=== PATIENT | male | born 1955 | race Caucasian/White ===

== ENCOUNTER 2017-11-07 07:39 | Day surgery (SDC) | payer BC ==
[2017-11-02 23:29] VITALS: BMI 29.0
[~2017-11-07 07:39] MED LIST: LACTATED RINGERS 1,000 ML IV SCH; LIDOCAINE 1% 20 ML VIAL (10MG/ML) FOR IV START INTRADERMA PRN
[2017-11-07 08:07] VITALS: RESP 16; TEMP 97.3
[2017-11-07] MEDS ORDERED: LIDOCAINE 1% INJ 10MG/ML (20 ML MDV) ONE (08:56)
[2017-11-07] MEDS ORDERED: MIDAZOLAM 2 MG/2 ML VIAL ONE (08:56)
[2017-11-07] MEDS ORDERED: PROPOFOL 10 MG/ML 20 ML VIAL IV ONE (08:56)
[2017-11-07 09:34] VITALS: BP 157/86; PULSE 52
--- NOTE | 2017-11-07 10:05 | P.PCN ---
Date of Procedure: 11/07/17 Procedure(s) Performed: Procedure: Total colonoscopy. Preoperative diagnosis: Screening for neoplasia. Postoperative diagnosis: Sigmoid diverticulosis with no evidence of acute diverticulitis, strictures, polyps or cancer. Preparation: HalfLytely prep. Sedation: Was provided by anesthesia. Brief clinical history: The patient is a 62-year-old male who is referred for this evaluation for screening for neoplasia. The patient had a prior colonoscopy around 10 years ago. At this time, he has no abdominal complaints, bleeding or anemia. Procedure: With the patient on his left lateral decubitus position and after informed consent and adequate sedation, the perianal area was inspected and it did not show any fissures or fistulas. There were no masses felt on digital rectal examination. The Olympus CFQ 160L video colonoscope was then inserted in the rectum in the usual fashion and advanced to the cecum. There were several diverticular orifices seen scattered in the sigmoid with no evidence of acute diverticulitis or strictures. No polyps or tumors were seen. I retroflexed the endoscope in the rectum before the endoscope was withdrawn. The patient tolerated the procedure well. Plan: The patient was reassured. Discussed dietary measures. I recommended repeat exam in 10 years. He will follow up with you as planned.
== END 2017-11-07 10:21 | disposition home or self-care (01) ==
LOC: ORWHC2ENDO 07:39
DX: Z12.11 Encounter for screening for malignant neoplasm of colon (principal); K57.30 Diverticulosis of large intestine without perforation or abscess without bleeding; I10 Essential (primary) hypertension; E78.5 Hyperlipidemia, unspecified; F17.200 Nicotine dependence, unspecified, uncomplicated; Z79.899 Other long term (current) drug therapy; Z85.828 Personal history of other malignant neoplasm of skin
CPT/HCPCS: G0121; J2250; J2001; J2704

== ENCOUNTER 2020-08-02 11:17 | Inpatient (IN) | payer BC, MEDICARE ==
--- NOTE | 2020-08-02 11:26 | ED ---
General Adult HPI - General Stated complaint: GI Bleed Time Seen by Provider: 08/02/20 11:17 Source: patient, RN notes reviewed, old records reviewed - History of Present Illness Initial comments: This is a 65-year-old male who presents emergency department stating that he's been lightheaded having blood per rectum and and feeling very weak. Patient states she's also notices color to be very pale. Patient states he was just discharged from the hospital at [facility] on Tuesday afternoon and he was in the hospital for diverticulitis. Patient states he had no biopsies or polypectomies. Patient denies any current abdominal pain. Patient denies any nausea vomiting or diarrhea. Patient denies any fever chills. - Related Data Home Medications Medication Instructions Recorded Confirmed Losartan Potassium 50 mg PO DAILY 11/02/17 08/02/20 Lovastatin [Mevacor] 10 mg PO DAILY 11/02/17 08/02/20 Amoxic-Pot Clav 875-125Mg 1 tab PO BID 08/02/20 08/02/20 [Augmentin 875-125] L.acidoph,Paracasei, B.lactis 1 cap PO DAILY 08/02/20 08/02/20 [Probiotic] Allergies Allergy/AdvReac Type Severity Reaction Status Date / Time No Known Allergies Allergy Verified 08/02/20 12:25 Review of Systems ROS Statement: Those systems with pertinent positive or pertinent negative responses have been documented in the HPI. ROS Other: All systems not noted in ROS Statement are negative. Past Medical History Past Medical History: Cancer, Hyperlipidemia, Hypertension Additional Past Medical History / Comment(s): skin-basal & squamous History of Any Multi-Drug Resistant Organisms: None Reported Past Surgical History: Hernia Repair, Tonsillectomy Past Anesthesia/Blood Transfusion Reactions: No Reported Reaction Past Alcohol Use History: Occasional Additional Past Alcohol Use History / Comment(s): quit smoking 15yrs-<1ppd smoked approx on and off 30yrs, occas cigar Past Drug Use History: None Reported - Past Family History Mother Family Medical History: Cancer Additional Family Medical History / Comment(s): skin General Exam - General Exam Comments Initial Comments: GENERAL: Patient is well-developed and well-nourished. Patient is nontoxic and well- hydrated and is in mild distress. ENT: Neck is soft and supple. No significant lymphadenopathy is noted. Oropharynx is clear. Moist mucous membranes. Neck has full range of motion without eliciting any pain. EYES: The sclera were anicteric and conjunctiva were pink and moist. Extraocular movements were intact and pupils were equal round and reactive to light. Eyelids were unremarkable. PULMONARY: Unlabored respirations. Good breath sounds bilaterally. No audible rales rhonchi or wheezing was noted. CARDIOVASCULAR: There is a regular rate and rhythm without any murmurs gallops or rubs. ABDOMEN: Soft and nontender with normal bowel sounds. SKIN: Patient is very pale NEUROLOGIC: Patient is alert and oriented x3. Cranial nerves II through XII are grossly intact. Motor and sensory are also intact. Normal speech, volume and content. Symmetrical smile. MUSCULOSKELETAL: Normal extremities with adequate strength and full range of motion. LYMPHATICS: No significant lymphadenopathy is noted PSYCHIATRIC: Normal psychiatric evaluation. Course Vital Signs 08/02/20 08/02/20 08/02/20 11:19 11:25 11:30 Temperature 98.6 F Pulse Rate 92 84 Respiratory 16 16 Rate Blood Pressure 108/64 108/64 108/64 O2 Sat by Pulse 100 100 Oximetry 08/02/20 08/02/20 12:00 12:30 Temperature Pulse Rate 83 82 Respiratory 14 16 Rate Blood Pressure 114/75 122/65 O2 Sat by Pulse Oximetry Medical Decision Making - Medical Decision Making EKG shows normal sinus rhythm at 89 bpm NE interval is 138 QRS is 94 QT interval 422 QTC is 513 per patient's EKG shows T-wave inversions in leads V3 through V6. Also in lead 1 and aVL patient also has Q waves in 1 and aVL. I spoke with Dr. Medeiros he agreed to admit the patient admitted the patient wrote admitting orders. I spoke with Dr. Lion craig and he agreed to accept the admission to the ICU - Lab Data Result diagrams: 08/02/20 11:32 08/02/20 11:32 Lab Results 08/02/20 08/02/20 08/02/20 Range/Units 11:30 11:32 11:32 WBC 12.9 H (3.8-10.6) k/uL RBC 1.64 L (4.30-5.90) m/uL Hgb 4.8 L* (13.0-17.5) gm/dL Hct 15.3 L* (39.0-53.0) % MCV 92.8 (80.0-100.0) fL MCH 29.0 (25.0-35.0) pg MCHC 31.3 (31.0-37.0) g/dL RDW 14.8 (11.5-15.5) % Plt Count 180 (150-450) k/uL Neutrophils % Not Reportable Neutrophils % (Manual) 73 % Lymphocytes % Not Reportable Lymphocytes % (Manual) 24 % Monocytes % Not Reportable Monocytes % (Manual) 1 % Eosinophils % Not Reportable Eosinophils % (Manual) 1 % Basophils % Not Reportable Metamyelocytes % 2 % Myelocytes % 1 % Neutrophils # Not Reportable Neutrophils # (Manual) 9.42 H (1.3-7.7) k/uL Lymphocytes # Not Reportable Lymphocytes # (Manual) 3.10 (1.0-4.8) k/uL Monocytes # Not Reportable Monocytes # (Manual) 0.13 (0-1.0) k/uL Eosinophils # Not Reportable Eosinophils # (Manual) 0.13 (0-0.7) k/uL Basophils # Not Reportable Metamyelocytes # (Man) 0.26 H (0) k/uL Myelocytes # (Manual) 0.13 H (0) k/uL Nucleated RBCs 0 (0-0) /100 WBC Manual Slide Review Performed PT 11.9 (9.0-12.0) sec INR 1.2 H (<1.2) APTT 25.0 (22.0-30.0) sec Sodium (137-145) mmol/L Potassium (3.5-5.1) mmol/L Chloride (98-107) mmol/L Carbon Dioxide (22-30) mmol/L Anion Gap mmol/L BUN (9-20) mg/dL Creatinine (0.66-1.25) mg/dL Est GFR (CKD-EPI)AfAm (>60 ml/min/1.73 sqM) Est GFR (CKD-EPI)NonAf (>60 ml/min/1.73 sqM) Glucose (74-99) mg/dL Calcium (8.4-10.2) mg/dL Magnesium (1.6-2.3) mg/dL Total Bilirubin (0.2-1.3) mg/dL AST (17-59) U/L ALT (4-49) U/L Alkaline Phosphatase (38-126) U/L Troponin I (0.000-0.034) ng/mL Total Protein (6.3-8.2) g/dL Albumin (3.5-5.0) g/dL Blood Type Blood Type Confirm A Positive Blood Type Recheck Bld Type Recheck Status Antibody Screen Crossmatch Spec Expiration Date 08/02/20 08/02/20 08/02/20 Range/Units 11:32 11:32 11:32 WBC (3.8-10.6) k/uL RBC (4.30-5.90) m/uL Hgb (13.0-17.5) gm/dL Hct (39.0-53.0) % MCV (80.0-100.0) fL MCH (25.0-35.0) pg MCHC (31.0-37.0) g/dL RDW (11.5-15.5) % Plt Count (150-450) k/uL Neutrophils % Neutrophils % (Manual) % Lymphocytes % Lymphocytes % (Manual) % Monocytes % Monocytes % (Manual) % Eosinophils % Eosinophils % (Manual) % Basophils % Metamyelocytes % % Myelocytes % % Neutrophils # Neutrophils # (Manual) (1.3-7.7) k/uL Lymphocytes # Lymphocytes # (Manual) (1.0-4.8) k/uL Monocytes # Monocytes # (Manual) (0-1.0) k/uL Eosinophils # Eosinophils # (Manual) (0-0.7) k/uL Basophils # Metamyelocytes # (Man) (0) k/uL Myelocytes # (Manual) (0) k/uL Nucleated RBCs (0-0) /100 WBC Manual Slide Review PT (9.0-12.0) sec INR (<1.2) APTT (22.0-30.0) sec Sodium 130 L (137-145) mmol/L Potassium 3.7 (3.5-5.1) mmol/L Chloride 103 (98-107) mmol/L Carbon Dioxide 26 (22-30) mmol/L Anion Gap 1 mmol/L BUN 28 H (9-20) mg/dL Creatinine 0.93 (0.66-1.25) mg/dL Est GFR (CKD-EPI)AfAm >90 (>60 ml/min/1.73 sqM) Est GFR (CKD-EPI)NonAf 86 (>60 ml/min/1.73 sqM) Glucose 151 H (74-99) mg/dL Calcium 7.0 L (8.4-10.2) mg/dL Magnesium 1.5 L (1.6-2.3) mg/dL Total Bilirubin 0.2 (0.2-1.3) mg/dL AST 76 H (17-59) U/L ALT 77 H (4-49) U/L Alkaline Phosphatase 50 (38-126) U/L Troponin I 0.054 H* (0.000-0.034) ng/mL Total Protein 3.9 L (6.3-8.2) g/dL Albumin 1.9 L (3.5-5.0) g/dL Blood Type A Positive Blood Type Confirm Blood Type Recheck No Previous Record Bld Type Recheck Status CABO Indicated Antibody Screen NEGATIVE Crossmatch See Detail Spec Expiration Date 08/05/2020 4474 Critical Care Time Critical Care Time: Yes Total Critical Care Time: 35 Disposition Clinical Impression: Lower gastrointestinal hemorrhage, Anemia Disposition: ADMITTED IP TO THIS HOSP Referrals: Tosin Ponce MD [Primary Care Provider] - 1-2 days Time of Disposition: 12:50
[2020-08-02] MEDS: SODIUM CHLORIDE 0.9% 1,000 ML IV STA ×2 (11:29→14:17)
[2020-08-02 11:58] LABS: ALT 77 U/L (4-49); AST 76 U/L (17-59); African American GFR (CKD) >90 (>60 ml/min/1.73 sqM); Albumin 1.9 g/dL (3.5-5.0); Alkaline Phosphatase 50 U/L (38-126); Anion Gap 1 mmol/L; Blood Urea Nitrogen 28 mg/dL (9-20); Carbon Dioxide 26 mmol/L (22-30); Chloride 103 mmol/L (98-107); Glucose 151 mg/dL (74-99); Magnesium 1.5 mg/dL (1.6-2.3); Non-African American GFR(CKD) 86 (>60 ml/min/1.73 sqM); Potassium 3.7 mmol/L (3.5-5.1); Sodium 130 mmol/L (137-145); Total Bilirubin 0.2 mg/dL (0.2-1.3); Total Protein 3.9 g/dL (6.3-8.2)
[2020-08-02 12:10] LABS: MCHC 31.3 g/dL (31.0-37.0); MCV 92.8 fL (80.0-100.0); Mean Platelet Volume 9.2; Platelet Count 180 k/uL (150-450); RBC 1.64 m/uL (4.30-5.90); RDW 14.8 % (11.5-15.5); WBC 12.9 k/uL (3.8-10.6)
[2020-08-02 12:12] LABS: INR 1.2 (<1.2); Prothrombin Time 11.9 sec (9.0-12.0)
[2020-08-02 12:16] LABS: HGB 4.8 gm/dL (13.0-17.5)
[2020-08-02 12:17] LABS: HCT 15.3 % (39.0-53.0)
[2020-08-02 12:47] LABS: Eosinophils # (M) 0.13 k/uL (0-0.7); Metamyelocytes # (M) 0.26 k/uL (0); Metamyelocytes % 2 %; Monocytes # (M) 0.13 k/uL (0-1.0); Myelocytes # (M) 0.13 k/uL (0); Myelocytes % 1 %; Neutrophils # (M) 9.42 k/uL (1.3-7.7); Neutrophils % (M) 73 %; Nucleated Red Blood Cells 0 /100 WBC (0-0); Total Cells Counted 200
[2020-08-02] MEDS ORDERED: NALOXONE 0.4 MG/ML 1 ML VIAL IV PRN (12:51)
[2020-08-02 14:15] LABS: Glucose,Whole Blood 166 mg/dL (75-99)
[2020-08-02] MEDS ORDERED: HYDROcodone/APAP 5-325MG 1 EACH TAB PO PRN (15:30)
[2020-08-02] MEDS ORDERED: LORazepam 0.5 MG TAB PO PRN (15:30)
--- NOTE | 2020-08-02 16:10 | XR ---
EXAMINATION TYPE: XR chest 1V portable DATE OF EXAM: 08/02/2020 COMPARISON: NONE HISTORY: Short of breath TECHNIQUE: FINDINGS: Heart and mediastinum are normal. Lungs are clear. Diaphragm is normal. Bony thorax appears normal. IMPRESSION: Normal chest.
[2020-08-02] MEDS: SODIUM CHLORIDE 0.9% 1,000 ML IV SCH (16:20)
[2020-08-02] MEDS: PANTOPRAZOLE 40 MG/10 ML VIAL IVP SCH (16:25)
--- NOTE | 2020-08-02 16:34 | HP ---
HISTORY AND PHYSICAL DATE OF SERVICE: 08/02/2020 CHIEF COMPLAINT: GI bleed. HISTORY OF PRESENT ILLNESS: This 65-year-old gentleman with a past medical history of hypertension, hyperlipidemia, being followed by Dr. Ponce in the outpatient setting has been complaining GI bleed for the past few days. The patient apparently was admitted to [facility] and patient went home. Currently the patient became very lightheaded and multiple episodes of bleeding per rectum and the EMS was called. The patient almost passed out with EMS and the patient was noted to have previous diverticulosis and the patient came to [facility] and was admitted for further evaluation and treatment. The hemoglobin found to be 4.2, white count is 12.9. Troponin is 1.0, 0.54. There is no history of fever, rigors or chills. No history of headache, loss of consciousness. The patient also complains of some abdominal discomfort also. PAST MEDICAL HISTORY: Past medical history of hypertension, hyperlipidemia and skin cancer. MEDICATIONS: 1. Mevacor 10 mg daily. 2. Losartan 50 mg daily. 3. Lactobacillus 1 p.o. daily. 4. Augmentin 1 p.o. b.i.d. ALLERGIES: None. FAMILY HISTORY: Family history of skin cancer in the family. SOCIAL HISTORY: History of smoking. No history of alcohol intake. REVIEW OF SYSTEMS: ENT: No diminished vision. No diminished hearing. CARDIOVASCULAR: No angina or palpitations. RESPIRATIONS: No cough. GI: As mentioned earlier. no dysuria or hematuria. NERVOUS SYSTEM: No numbness, weakness. ALLERGY/IMMUNOLOGY: No asthma or hayfever. MUSCULOSKELETAL as mentioned earlier. HEMATOLOGY/ONCOLOGY: As mentioned earlier. ENDOCRINE: No history of diabetes or hypothyroidism. CONSTITUTIONAL: As mentioned earlier. DERMATOLOGY: Negative. RHEUMATOLOGY negative. PSYCHIATRY as mentioned earlier. PHYSICAL EXAMINATION: Alert and oriented times three. Pulse is 80. Blood pressure 111/60, respirations 16, temperature 98.2, pulse ox 98% on room air. HEENT: Conjunctivae pale. Oral mucosa dry. Skin is pale. CARDIOVASCULAR: S1, S2 muffled. No S3, no S4. RESPIRATORY: Breath sounds diminished in the bases. A few scattered rhonchi. No crackles. ABDOMEN: Soft. Mild diffuse discomfort on palpation. No guarding. No rigidity. No mass palpable. No ascites. LEGS: No edema. No swelling. NERVOUS SYSTEM: Higher functions as mentioned earlier. Moves all 4 limbs. No focal motor or sensory deficits. LYMPHATICS: No lymph nodes palpable in the neck, axillae or groin. SKIN: No rash. No ulcers. No bleeding. JOINTS: No active deforming arthropathy. LABS: WBC 12.9, hemoglobin 4.8. INR 1.2. Sodium is 130 and troponin 0.05. ASSESSMENT: 1. Acute lower gastrointestinal bleed, possibly diverticular bleed with acute blood loss anemia, severe. 2. Severe symptomatic anemia. 3. Possibly presyncope secondary to severe anemia. 4. Increased WBC. 5. Hyponatremia. 6. Hypomagnesemia. 7. Increased AST/ALT, possibly mild hepatitis. 8. Hypoalbuminemia with mild protein calorie malnutrition. 9. Obesity, body mass index of 33.9. 10.Rule out chronic liver disease. 11.Troponin 0.05 indeterminate. 12.FULL CODE. RECOMMENDATIONS AND DISCUSSION: In this 65-year-old gentleman who presented with multiple complex medical issues, we will monitor the patient closely. Continue the current medications, management and symptomatic treatment. We will initiate multiple transfusions. EKG showed ST-T changes. Recommend monitor in ICU. Transfusions. Gastroenterology consultation. Cardiology consultation. Otherwise empiric antibiotics. I would also recommend a 2D echo with Doppler. I would also recommend a CT scan of the abdomen and pelvis once the patient is stable. The overall prognosis extremely guarded because of multiple complex medical issues. Further recommendations to follow. A copy of this dictation being forwarded to Dr. Ponce who is the primary physician. MMODL / IJN: [id number] / [facility]
--- NOTE | 2020-08-02 16:34 | ECHOF ---
Referral Reason:htn MEASUREMENTS -------- HEIGHT: 180.3 cm WEIGHT: 107.0 kg BP: IVSd: 1.1 cm (0.6 - 1.1) LVIDd: 3.2 cm (3.9 - 5.3) LVPWd: 1.3 cm (0.6 - 1.1) EDV(Teich): 41 ml IVSs: 1.4 cm LVIDs: 1.2 cm LVPWs: 1.5 cm %IVS Thck: 31 % ESV(Teich): 4 ml EF(Teich): 91 % %FS: 62 % SV(Teich): 38 ml IVC: 19.98 mm LALs A4C: 5.4 cm LAAs A4C: 20.5 cm LAESV A-L A4C: 66 ml LAESV MOD A4C: 61 ml LALs A2C: 6.0 cm LAAs A2C: 21.0 cm LAESV A-L A2C: 63 ml LAESV MOD A2C: 58 ml LAESV(A-L): 68 ml LAESV Index (A-L): 29.98 ml/m Ao Diam: 3.3 cm (2.0 - 3.7) LA Diam: 3.0 cm (2.7 - 3.8) AV Cusp: 1.5 cm (1.5 - 2.6) MV E Venu: 0.85 m/s MV DecT: 237 ms MV Dec [place]: 3.6 m/s MV A Venu: 1.07 m/s MV E/A Ratio: 0.79 MV PHT: 69 ms MR Vmax: 1.29 m/s MR maxP.68 mmHg LVOT Vmax: 1.10 m/s LVOT maxP.88 mmHg AV Vmax: 2.31 m/s AV maxP.36 mmHg AV Vmax: 2.43 m/s AV Vmean: 1.90 m/s AV maxP.61 mmHg AV meanP.81 mmHg AV Env.Ti: 231 ms AV VTI: 43.8 cm TR Vmax: 1.81 m/s TR maxP.11 mmHg RAP: 5.00 mmHg RVSP: 18.11 mmHg FINDINGS -------- Sinus rhythm. This was a technically adequate study. The left ventricular size is normal. There is mild concentric left ventricular hypertrophy. Overa ll left ventricular systolic function is normal with, an EF between 55 - 60 %. The diastolic fillin g pattern is normal for the age of the patient 11.40. The right ventricle is normal in size. LA is midly dilated 29-33ml/m2. The right atrial size is normal. The aortic valve was not well visualized. There is mild aortic stenosis present. Peak/mean gradie nt across the Aortic Valve is 23.61mmHg / 15.81mmHg. The mitral valve is normal. There is trace mitral regurgitation. The tricuspid valve appears structurally normal. Trace tricuspid regurgitation present. Right wan tricular systolic pressure is normal at < 35 mmHg. There is no pulmonic regurgitation present. The aortic root size is normal. There is no pericardial effusion. CONCLUSIONS -------- 1. There is mild concentric left ventricular hypertrophy. 2. Overall left ventricular systolic function is normal with, an EF between 55 - 60 %. 3. The diastolic filling pattern is normal for the age of the patient 11.40 4. LA is midly dilated 29-33ml/m2. 5. There is mild aortic stenosis present. 6. Peak/mean gradient across the Aortic Valve is 23.61mmHg / 15.81mmHg. 7. There is trace mitral regurgitation. 8. Trace tricuspid regurgitation present. 9. There is no pericardial effusion. LOG RAFTER: Angie Munson RDCS
--- NOTE | 2020-08-02 17:46 | CONS ---
CONSULTATION Mr. Mancia is a 65-year-old male with history of hypertension, hyperlipidemia, who was discharged from [facility] on Tuesday after being admitted for diverticulitis. After he got home he had tarry stool and subsequently bloody stool. Today he felt quite weak and tired, dyspneic and pale. Came into the emergency room and was noted to have a hemoglobin of 4.8. Cardiology consultation was requested because of mildly elevated troponin. The patient denies any symptoms of chest pain. He denies any dizziness or palpitation. He denies any PND, orthopnea, or peripheral edema. He has no prior cardiac history or recent cardiac workup. His risk factors are remarkable for the hypertension and hyperlipidemia. He smokes cigars at times. He is nondiabetic. MEDICATIONS: Include lovastatin 10 mg daily, losartan 50 mg daily, and he was on Augmentin. REVIEW OF SYSTEMS: Respiratory system: He has no wheezing. No cough. No history of documented obstructive lung disease. GI system: He has the GI bleed and abdominal pain as noted. system: No dysuria or hematuria. Nervous system: No stroke or seizure. PHYSICAL EXAMINATION: 65-year-old male, alert, oriented, no apparent distress. Blood pressure 107/60 with a heart rate 72. Receiving blood transfusion. HEAD: Normocephalic. Eyes anicteric. Conjunctivae pale. NECK: Good carotid upstroke, no bruit. LUNGS: Clear to auscultation. HEART: Regular rate and rhythm S1, S2. No S3 with systolic murmur heard at the base, 1/6 with no diastolic murmur, no rub. ABDOMEN: Soft, nontender. Positive bowel sounds. No organomegaly. EXTREMITIES: No edema. Intact distal pulses. LAB DATA: Hemoglobin 4.8, white blood cells 12.9, platelet count of 180. BUN and creatinine 28 and 0.93. Magnesium 1.5. Troponin 0.054. Albumin is 1.9. EKG revealed a sinus mechanism, normal axis, intervals, minor nonspecific ST-T wave changes. IMPRESSION: 1. Severe anemia with acute gastrointestinal bleeding, most likely related to the diverticulitis. 2. Mild troponin elevation related to demand/supply mismatch. No evidence of acute coronary syndrome. 3. History of hypertension. 4. Hyperlipidemia. RECOMMENDATION: From the cardiac standpoint, I will hold his antihypertensive treatment and statin. I will obtain echocardiogram with Doppler to evaluate the left ventricular systolic function and depending on his progress, further recommendation will be made. Thank you for this consult. We will follow with you. RACHELE / IJN: [id number] /
[2020-08-02 18:15] LABS: HCT 23.9 % (39.0-53.0); MCH 30.1 pg (25.0-35.0); MCHC 32.8 g/dL (31.0-37.0); MCV 91.8 fL (80.0-100.0); Mean Platelet Volume 8.6; Platelet Count 204 k/uL (150-450); RBC 2.61 m/uL (4.30-5.90); RDW 14.4 % (11.5-15.5); WBC 19.1 k/uL (3.8-10.6)
[2020-08-02 18:22] LABS: HGB 7.8 gm/dL (13.0-17.5)
[2020-08-02 18:36] LABS: Band Neutrophils % 2 %; Lymphocytes # (M) 4.58 k/uL (1.0-4.8); Metamyelocytes # (M) 0.38 k/uL (0); Metamyelocytes % 2 %; Monocytes # (M) 1.15 k/uL (0-1.0); Myelocytes # (M) 0.19 k/uL (0); Myelocytes % 1 %; Neutrophils % (M) 65 %; Nucleated Red Blood Cells 0 /100 WBC (0-0); Total Cells Counted 100
[2020-08-02] MEDS ORDERED: Magnesium Replacement Protocol 1 EACH MISC MISCELLANE PRN (19:06)
[2020-08-02] MEDS ORDERED: Potassium Replacement Protocol 1 EACH MISC MISCELLANE PRN (19:06)
[2020-08-02 19:37] LABS: ALT 97 U/L (4-49); AST 88 U/L (17-59); African American GFR (CKD) >90 (>60 ml/min/1.73 sqM); Albumin 2.3 g/dL (3.5-5.0); Alkaline Phosphatase 58 U/L (38-126); Anion Gap 0 mmol/L; Blood Urea Nitrogen 27 mg/dL (9-20); Calcium 7.4 mg/dL (8.4-10.2); Carbon Dioxide 25 mmol/L (22-30); Chloride 107 mmol/L (98-107); Glucose 128 mg/dL (74-99); Magnesium 1.8 mg/dL (1.6-2.3); Non-African American GFR(CKD) >90 (>60 ml/min/1.73 sqM); Potassium 4.1 mmol/L (3.5-5.1); Sodium 132 mmol/L (137-145); Total Bilirubin 0.7 mg/dL (0.2-1.3); Total Protein 4.6 g/dL (6.3-8.2)
[2020-08-02] MEDS: MAGNESIUM SULFATE-D5W PMX 1 GM in DEXTROSE/WATER 1 100ML.BAG IVPB SCH (21:39)
--- NOTE | 2020-08-02 21:53 | CT ---
EXAMINATION TYPE: CT abdomen pelvis wo con DATE OF EXAM: 08/02/2020 COMPARISON: None HISTORY: GI bleed CT DLP: 832.5 mGycm Automated exposure control for dose reduction was used. Lung bases are clear of consolidation. There is no pleural effusion. There are 2 small cysts in the a nterior right lobe of the liver that measure 2 cm. Gallbladder is contracted. Spleen is intact. There is no pancreatic mass. The stomach is intact. There is no adrenal mass. Kidneys have normal size. There is no hydronephrosis. Ureters are not dilat ed. There is no retroperitoneal adenopathy. There are sigmoid multiple diverticula. I see no sign of diverticulitis. Bladder distends smoothly. There is no inguinal hernia. Appendix is not definitely se en. There is no sign of thickened appendix. There is no mesenteric edema. There is no ascites. There is some mild fat stranding around the distal gastric antrum in the proximal duodenum. Lumbar vertebra have normal alignment. Disc spaces are fairly normal. There is no compression fractur e. The bony pelvis is intact. IMPRESSION: There is minimal edema around the gastric antrum that could relate to some duodenitis. Extensive colonic diverticulosis without diverticulitis. No renal stone or obstruction.
[2020-08-02 22:46] LABS: Appearance,Urine Cloudy (Clear); Bilirubin,Urine Negative (Negative); Blood,Urine Negative (Negative); Color,Urine Yellow; Glucose,Urine (UA) Negative (Negative); Hyaline Casts,Urine 3 /lpf (0-2); Ketones,Urine Negative (Negative); Leukocyte Esterase,Urine Negative (Negative); Nitrite,Urine Negative (Negative); PH, Urine 5.5 (5.0-8.0); Protein,Urine Negative (Negative); RBC,Urine <1 /hpf (0-5); Specific Gravity,Urine 1.017 (1.001-1.035); Uric Acid Crystals,Urine Rare /hpf; Urobilinogen,Urine <2.0 mg/dL (<2.0); WBC,Urine 1 /hpf (0-5)
[2020-08-02 23:38] LABS: Hepatitis A Antibody IgM Non-Reactive (Non-Reactive); Hepatitis B Core IgM Non-Reactive (Non-Reactive); Hepatitis B Surface Antigen Non-Reactive (Non-Reactive); Hepatitis C IgG Antibody Non-Reactive (Non-Reactive)
[2020-08-03] MEDS: MELATONIN 5 MG TABLET PO PRN (00:25)
[2020-08-03] MEDS: MAGNESIUM SULFATE-D5W PMX 1 GM in DEXTROSE/WATER 1 100ML.BAG IVPB SCH (00:25)
[2020-08-03 00:45] LABS: HCT 20.9 % (39.0-53.0); MCHC 32.7 g/dL (31.0-37.0); MCV 91.7 fL (80.0-100.0); Mean Platelet Volume 8.4; Platelet Count 222 k/uL (150-450); RBC 2.28 m/uL (4.30-5.90); RDW 14.8 % (11.5-15.5)
[2020-08-03 00:58] LABS: HGB 6.8 gm/dL (13.0-17.5)
[2020-08-03] MEDS: HYDROmorphone 0.5 MG/0.5 ML SYRINGE IVP PRN ×5 (02:34→20:44)
[2020-08-03] MEDS: SODIUM CHLORIDE 0.9% 1,000 ML IV SCH ×2 (06:11→18:59)
[2020-08-03 07:23] LABS: ALT 102 U/L (4-49); AST 84 U/L (17-59); African American GFR (CKD) >90 (>60 ml/min/1.73 sqM); Albumin 2.7 g/dL (3.5-5.0); Alkaline Phosphatase 57 U/L (38-126); Anion Gap 3 mmol/L; Blood Urea Nitrogen 22 mg/dL (9-20); Calcium 7.6 mg/dL (8.4-10.2); Carbon Dioxide 25 mmol/L (22-30); Chloride 106 mmol/L (98-107); Glucose 92 mg/dL (74-99); Magnesium 2.1 mg/dL (1.6-2.3); Non-African American GFR(CKD) >90 (>60 ml/min/1.73 sqM); Potassium 4.1 mmol/L (3.5-5.1); Sodium 134 mmol/L (137-145); Total Bilirubin 0.7 mg/dL (0.2-1.3); Total Protein 5.3 g/dL (6.3-8.2)
[2020-08-03 07:29] LABS: HCT 27.5 % (39.0-53.0); Hypochromasia Slight; MCH 30.9 pg (25.0-35.0); MCHC 32.7 g/dL (31.0-37.0); MCV 94.5 fL (80.0-100.0); Mean Platelet Volume 8.1; Platelet Count 236 k/uL (150-450); RBC 2.91 m/uL (4.30-5.90)
[2020-08-03] MEDS: PANTOPRAZOLE 40 MG/10 ML VIAL IVP SCH ×2 (08:12→20:48)
[2020-08-03] MEDS: LOSARTAN 50 MG TAB PO SCH (08:15)
[2020-08-03 08:42] LABS: Band Neutrophils % 1 %; Metamyelocytes % 2 %; Myelocytes % 5 %; Neutrophils % (M) 68 %; Nucleated Red Blood Cells 2 /100 WBC (0-0); Total Cells Counted 200
[2020-08-03 08:44] LABS: Lymphocytes # (M) 3.62 k/uL (1.0-4.8); Monocytes # (M) 1.21 k/uL (0-1.0); Myelocytes # (M) 1.01 k/uL (0); WBC 20.1 k/uL (3.8-10.6)
[2020-08-03 08:45] LABS: Anisocytosis (M) Present
--- NOTE | 2020-08-03 09:25 | PN ---
PROGRESS NOTE Mr. Mancia is a 65-year-old male who was admitted yesterday with severe anemia. He is feeling better today. He received a transfusion. His breathing is better. He denies any chest pain. He denies any dizziness or palpitation. He continued to be in sinus mechanism. He underwent an echocardiogram that revealed preserved ventricular size and systolic function with mild aortic stenosis. He is on losartan 50 mg daily that was initiated yesterday. PHYSICAL EXAMINATION: Blood pressure is running in the 120s to 130s with a heart rate in the 70s. LUNGS: Clear. HEART: Regular rate and rhythm S1, S2. No S3. No rub. ABDOMEN: Soft. Nontender. Positive bowel sounds. EXTREMITIES: No edema. LAB DATA: Revealed hemoglobin up to 9, white blood cells 20.5, platelet count 236. BUN and creatinine of 22 and 0.87. IMPRESSION: 1. Acute gastrointestinal bleeding related likely to diverticulitis. 2. Troponin elevation related to demand supply mismatch. No evidence for acute coronary syndrome. 3. History of hypertension. 4. Hyperlipidemia. RECOMMENDATION: We will continue present therapy, follow his blood pressure, increase his level of activity. I will re-initiate treatment with his statin. Depending on his progress, further recommendations will be made. MMODL / IJN: [id number] /
[2020-08-03] MEDS ORDERED: IV FLUID CONTINUATION 1,000 ML IV ONE (09:54)
[2020-08-03] MEDS ORDERED: LIDOCAINE 1% INJ 10MG/ML (20 ML MDV) ONE (10:07)
[2020-08-03] MEDS ORDERED: PROPOFOL 10 MG/ML 20 ML VIAL IV ONE (10:07)
--- NOTE | 2020-08-03 10:19 | P.PCN ---
Date of Procedure: 08/03/20 Procedure(s) Performed: BRIEF HISTORY: Patient is a 65-year-old, pleasant, white male admitted hospital with acute GI bleed. He was admitted to the [facility] 5 days ago with severe abdominal pain and a normal hemoglobin. He was treated with antibiotic for possible acute diverticulitis. He started having multiple episodes of black tarry stools for the last 2 days and initial hemoglobin in the ER was 4.8 g/dL. He received 3 units of blood transfusion and last hemoglobin is 7.5 g/dL.. PROCEDURE PERFORMED: Esophagogastroduodenoscopy with biopsy and Endo Clip placement. PREOPERATIVE DIAGNOSIS: Acute upper GI bleed. IV sedation per anesthesia. PROCEDURE: After informed consent was obtained, the patient was brought into the endoscopy unit. IV sedation was administered by Anesthesia under continuous monitoring. Initially the Olympus GIF-140 video endoscope was inserted into the mouth. Esophagus intubated without any difficulty. It was gradually advanced into the stomach and duodenum and carefully examined. The second part of the duodenum appeared normal. There was a circumferential ulceration noted in the duodenal bulb with no active bleeding. However there was a visible vessel noted which appeared to be the source of bleeding and hence Endo Clip was placed The scope at this time was withdrawn to the stomach, adequately insufflated with air, and upon careful examination, mucosa of the antrum, had several erosions status post biopsy. The body, cardia and the fundus appeared normal. The scope was then withdrawn into the esophagus. The GE junction was located at 39 cm from the incisors. The esophagus appeared normal. There were no erosions or ulcerations seen and the patient tolerated the procedure well. IMPRESSION: 1. Large circumferential duodenal bulbar ulcer with a visible vessel but no active bleeding status post Endo Clip placement as described above. 2. Antral erosive gastritis. RECOMMENDATIONS: The findings of this examination were discussed with the patient as well as his family. He'll be continued on Protonix 40 mg twice daily. Start on liquid diet. Monitor CBC twice daily.
[2020-08-03] MEDS: ATORVASTATIN 20 MG TAB PO SCH (12:23)
[2020-08-03] MEDS: SUCRALFATE 1 GM TAB PO SCH ×3 (12:23→20:44)
--- NOTE | 2020-08-03 12:35 | CONS ---
CONSULTATION PULMONARY/CRITICAL CARE CONSULTATION: DATE OF SERVICE: August 03, 2020. REASON FOR CONSULTATION: GI bleed. This is a very pleasant 65-year-old male who presented to the emergency department on August 02 complaining of lightheadedness, and bright red bleeding and maroon stools per rectum. It has been going on for a couple of days now. The patient apparently was recently discharged from [facility] on Tuesday afternoon for a similar episode of diverticulitis. He apparently did not have a procedure at that time. Anyway, the patient is going for an EGD today with Dr. Aguilar. Currently, he is on room air. His saline IV is running at 75 mL an hour. Since he has been here, he has received 3 units of PRBCs. Hemoglobin this morning is 9. His primary care physician is Dr. Ponce. He has a history of hypertension, hyperlipidemia. Currently, he is not having any pain, he is not having shortness of breath, cough, wheezing, chest pain, chest discomfort, or any other complaints for that matter. CURRENT HOME MEDICATIONS: Include losartan, Mevacor, Augmentin and Probiotic. ALLERGIES: Denied. MEDICAL HISTORY: Include skin cancer, hyperlipidemia, hypertension. SURGICAL HISTORY: Includes hernia repair, tonsillectomy. SOCIAL HISTORY: Negative for tobacco currently. He quit smoking 15 years ago. He does smoke an occasional cigar. He has smoked on and off for about 30 years. Alcohol use is occasional. No illicit drug use. FAMILY HISTORY: Positive for mother with skin cancer. REVIEW OF SYSTEMS: CONSTITUTIONAL negative. HEENT negative. CARDIOVASCULAR negative. PULMONARY negative. GI bright red bleeding per rectum and maroon stools per rectum. negative. RHEUMATOLOGIC negative. IMMUNOLOGIC negative. ENDOCRINOLOGIC negative. DERMATOLOGIC negative. PHYSICAL EXAMINATION: VITAL SIGNS: Current vital signs are reviewed. Temperature 98.1, heart rate 70, respiratory rate 14, blood pressure 141/87, mean 105, room air saturation 96%. GENERAL: Appears in no acute distress. HEENT: Examination is grossly unremarkable. Mucous membranes are moist. No oral lesions. NECK: Supple. CARDIOVASCULAR examination reveals a regular rhythm and rate. S1, S2 normal. No S3, S4, or murmur. LUNGS: Reveal clear breath sounds, equal. No wheezes, rhonchi, or crackles. ABDOMEN: Soft. Bowel sounds are noted. No masses or tenderness. EXTREMITIES are intact. No cyanosis, clubbing, or edema. SKIN: Without rash. NEUROLOGIC: Examination is brief but nonfocal. Current labs include a white count of 20.1, hemoglobin 9, hematocrit 27.5, lowest hemoglobin 6.8. Sodium 134, potassium 4.1, chloride 106, CO2 25, anion gap 3, BUN and creatinine were 23 and 0.87. The rest of the labs look okay. Urine is clean. Microbiology is negative or pending. The patient had a chest x-ray which showed no acute disease. There was an abdominal and pelvic CT scan which showed minimal edema around gastric antrum that could relate to duodenitis. There was extensive colonic diverticulosis without diverticulitis. The patient had an EGD this morning. The EGD showed large circumferential duodenal bulb ulcer with visible vessel, but no active bleeding status post endo clip placement. There is also antral erosive gastritis. Her recommendation was clear liquid diet, proton pump inhibitor, and monitor hemoglobin and hematocrit. Medications reviewed. Currently, the patient is on Lipitor, ceftriaxone, [place], Dilaudid, Ativan, Cozaar, magnesium, melatonin, Protonix, potassium replacement, and saline IV. ASSESSMENT: 1. Upper gastrointestinal bleed secondary to a large duodenal bulb ulcer, with a visible vessel, but no active bleeding, status post Endo clip, postop day #0. 2. Antral erosive gastritis. 3. History of hypertension. 4. History of hyperlipidemia. 5. History of skin cancer. 6. Anemia, secondary to gastrointestinal bleed, status post 3 units of PRBCs. PLAN: The patient will stay here in the ICU. We will monitor him here closely. No additional recommendations are made. We will continue the proton pump. Additional recommendations and suggestions forthcoming. Prognosis is guarded. MMODL / IJN: [id number] / MARISOL
--- NOTE | 2020-08-03 12:42 | CONS ---
CONSULTATION DATE OF SERVICE: August 03, 2020. REASON FOR CONSULTATION: Acute gastrointestinal bleed. HISTORY OF PRESENT ILLNESS: The patient is a 65-year-old pleasant white male with history of hypertension and hyperlipidemia who was recently admitted to [facility] 5 days ago with severe acute abdominal pain and was treated for presumed acute diverticulitis. The patient however was discharged home on antibiotics. He started developing lightheadedness, dizziness, multiple episodes of black tarry stools that started on Tuesday and continued until yesterday morning. He became dizzy, came to the emergency room and was noted to have a hemoglobin of 4.8 g/dL. His hemoglobin 5 days ago was 13 g/dL. He denies any further episodes of abdominal pain. No nausea, no vomiting. He received 3 units of PRBC transfusion hemoglobin is up to 7.5 g/dL. According to his , he has been taking Aleve for recent head cold. No prior history of peptic ulcer disease. He did have a CT of the abdomen and pelvis done that showed thickening of the gastric antrum and duodenum. PAST MEDICAL HISTORY: Hypertension, hyperlipidemia and recent episode of acute diverticulitis. MEDICATIONS: At home, Mevacor, losartan, lactobacillus, and Augmentin. ALLERGIES: None. SOCIAL HISTORY: Chronic smoker. No alcohol use. FAMILY HISTORY: Unremarkable other than skin cancer in the family. REVIEW OF SYSTEMS: CARDIOPULMONARY: No chest pain or shortness of breath. no dysuria or hematuria. MUSCULOSKELETAL unremarkable. SKIN unremarkable. ENDOCRINE unremarkable. PSYCHIATRIC unremarkable. NEUROLOGY severe dizziness. ENT: Vision unremarkable. CONSTITUTIONAL: Fatigue, weakness. No fever, chills, or night sweats. PHYSICAL EXAMINATION: He appears comfortable. No apparent distress. Vital signs stable. Blood pressure is 133/86, pulse rate 73, temperature 98.1. HEENT examination unremarkable. Conjunctivae pink. Sclerae anicteric. Oral cavity no lesions. NECK no JVD or lymph node enlargement. CHEST was clear to auscultation. HEART: Regular rate and rhythm. ABDOMEN: Soft. Bowel sounds are positive. No organomegaly. EXTREMITIES: No pedal edema. SKIN no rashes. NEUROLOGIC: Alert and oriented x3. No focal deficits. LABS: At the time of admission to the hospital: WBC was 12.9, hemoglobin 4.8. Today it is 9 g/dL after 3 units of blood transfusion. BUN was elevated at 22, creatinine 0.98. AST and ALT are 76 and 77 respectively. T-bilirubin 0.2, alkaline phosphatase normal. Troponin slightly elevated at 0.76. Cardiology following the patient. IMPRESSION: 1. Acute upper gastrointestinal bleed. The patient presented with severe dizziness, fatigue, and black tarry stools for the last 2 days duration. Recent hemoglobin 5 days ago was 13 g/dL. He received a total of 3 units of PRBC transfusion for hemoglobin of 4.8 and currently it is 9 g/dL. CT scan showed thickening of the gastric antrum and duodenum suspicious for peptic ulcer disease. The patient has been taking some Aleve for recent flu-like symptoms about a week ago. 2. Slightly elevated troponin. Cardiology following the patient closely. 3. Mild elevation of serum transaminases. Hepatitis serologies for A, B and C negative. RECOMMENDATIONS: 1. Continue Protonix 40 mg q.12 hours. 2. N.p.o. 3. We will proceed with an upper endoscopy today. Discussed with the patient risks, benefits and complications of the procedure. 4. Monitor CBC closely and transfuse if the hemoglobin is less than 7. 5. We will follow with you closely. Thank you for this consultation. MMODL / IJN: [id number] /
--- NOTE | 2020-08-03 15:33 | PN ---
PROGRESS NOTE DATE OF SERVICE: 08/03/2020 This is a 65-year-old gentleman who was admitted with acute lower gastrointestinal bleed. Had an endoscopies done. The patient was found to have significant large circumferential duodenal bulb ulcer with visible vessel with no active bleeding noted. Endoclip was done. Antral erosive gastritis was also noted by Dr. Aguilar. Patient is being closely monitored. The patient also received multiple transfusions and hemoglobin has improved to 9. At this time, the patient apparently received 3 units so far. The patient also had indeterminate troponin of 0.076. Cardiology is following the patient. PAST MEDICAL HISTORY: Reviewed. REVIEW OF SYSTEMS: CARDIOVASCULAR: No angina or palpitations. RESPIRATORY: As mentioned earlier. GI: As mentioned earlier. : No dysuria. NERVOUS SYSTEM: No numbness or weakness. CURRENT MEDICATIONS: Reviewed and include Lipitor 20 mg, Dilaudid p.r.n., Cozaar, melatonin, magnesium, Narcan Protonix, Carafate. PHYSICAL EXAM: GENERAL: Patient is alert and oriented times three. VITAL SIGNS: Pulse 77, blood pressure 160/87, respirations 16, temperature normal, pulse ox 97% on room air HEENT: Conjunctivae normal. NECK: No jugular venous distention. RESPIRATORY: Breath sounds diminished at the bases. Scattered rhonchi and crackles. HEART: S1 and S2, muffled. ABDOMEN: Soft, no tenderness. Obese. No masses palpable. EXTREMITIES: No edema, no swelling. NERVOUS: Higher functions as mentioned earlier. Moves all four limbs. No focal deficits. LYMPHATICS: No lymph nodes in the neck or axillae. SKIN: No rashes. JOINTS: No active deforming arthropathy. LABS: WBC 20.1, hemoglobin is 9, sodium 134. AST is 84, ALT is 102. ASSESSMENT: 1. Acute upper gastrointestinal bleeding with severe acute blood loss anemia status post 3 units transfusion. 2. Large circumferential duodenal bulb ulcer with visible vessel status post Endoclip and antral erosive gastritis on the EGD. 3. Hyponatremia. 4. Increased WBC. 5. Increased AST and ALT, possibly acute hepatitis. 6. Mild hypoalbuminemia. 7. Severe symptomatic anemia. 8. Presyncope secondary to severe anemia. 9. Troponin 0.076, rule out coronary artery disease. 10.Hypomagnesemia. 11.Increased AST and ALT, possibly mild hepatitis. 12.Hypoalbuminemia with mild protein calorie malnutrition. 13.Obesity with body mass index of 33.9. 14.Rule out chronic liver disease. 15.Mild aortic stenosis. 16.FULL CODE. RECOMMENDATIONS AND DISCUSSION: Recommend to continue current management and continue symptomatic treatment. CT scan did not show any acute abnormality. Hemoglobin is improved to 9 after transfusions. I would recommend continue with IV proton pump inhibitors. Add Carafate to the current regimen. Closely follow with multiple consultants. Prognosis is guarded. Otherwise cardiology consultation. The patient might require further workup as an outpatient including a stress test. Otherwise, a 2D echo with Doppler which was done earlier was reviewed and showed ejection fraction about 50-60%, trace valvular abnormalities and as well as mild aortic stenosis. Continue to monitor. Further recommendations to follow. MMODL / IJN: [id number] /
[2020-08-03 18:55] LABS: Basophils # (A) 0.2 k/uL (0-0.2); Basophils % (A) 1 %; Eosinophils # (A) 0.2 k/uL (0-0.7); Eosinophils % (A) 1 %; HCT 23.3 % (39.0-53.0); HGB 7.7 gm/dL (13.0-17.5); Lymphocytes # (A) 2.8 k/uL (1.0-4.8); Lymphocytes % (A) 17 %; MCH 30.7 pg (25.0-35.0); MCV 93.1 fL (80.0-100.0); Monocytes # (A) 0.8 k/uL (0-1.0); Monocytes % (A) 5 %; Neutrophils # (A) 12.4 k/uL (1.3-7.7); Neutrophils % (A) 73 %; Platelet Count 286 k/uL (150-450)
[2020-08-03] MEDS: HYDROcodone/APAP 5-325MG 1 EACH TAB PO PRN (23:14)
[2020-08-04] MEDS: HYDROmorphone 0.5 MG/0.5 ML SYRINGE IVP PRN ×4 (01:56→20:52)
[2020-08-04 04:34] LABS: Basophils # (A) 0.2 k/uL (0-0.2); Basophils % (A) 1 %; Eosinophils # (A) 0.3 k/uL (0-0.7); Eosinophils % (A) 2 %; HCT 22.8 % (39.0-53.0); HGB 7.6 gm/dL (13.0-17.5); Lymphocytes # (A) 3.6 k/uL (1.0-4.8); Lymphocytes % (A) 19 %; MCH 31.4 pg (25.0-35.0); MCHC 33.4 g/dL (31.0-37.0); Monocytes % (A) 5 %; Neutrophils # (A) 13.8 k/uL (1.3-7.7); Neutrophils % (A) 71 %; Platelet Count 326 k/uL (150-450); RBC 2.43 m/uL (4.30-5.90); RDW 15.6 % (11.5-15.5); WBC 19.6 k/uL (3.8-10.6)
[2020-08-04 04:47] LABS: ALT 78 U/L (4-49); AST 53 U/L (17-59); African American GFR (CKD) >90 (>60 ml/min/1.73 sqM); Albumin 2.4 g/dL (3.5-5.0); Alkaline Phosphatase 43 U/L (38-126); Anion Gap 1 mmol/L; Blood Urea Nitrogen 15 mg/dL (9-20); Calcium 7.5 mg/dL (8.4-10.2); Carbon Dioxide 26 mmol/L (22-30); Chloride 106 mmol/L (98-107); Glucose 91 mg/dL (74-99); Non-African American GFR(CKD) >90 (>60 ml/min/1.73 sqM); Potassium 4.1 mmol/L (3.5-5.1); Sodium 133 mmol/L (137-145); Total Bilirubin 0.6 mg/dL (0.2-1.3); Total Protein 4.9 g/dL (6.3-8.2)
[2020-08-04] MEDS: SUCRALFATE 1 GM TAB PO SCH ×4 (06:46→20:52)
[2020-08-04] MEDS: PANTOPRAZOLE 40 MG/10 ML VIAL IVP SCH ×2 (08:12→20:53)
[2020-08-04] MEDS: LOSARTAN 50 MG TAB PO SCH (08:12)
[2020-08-04] MEDS: ATORVASTATIN 20 MG TAB PO SCH (08:12)
--- NOTE | 2020-08-04 10:34 | P.PN ---
Subjective This is a pleasant 65-year-old male past medical history significant for hypertension and dyslipidemia. We're following secondary to troponin elevation in the setting of severe anemia and GI bleeding. He is seen and examined sitting up in the chair in no acute distress. He underwent EGD with Dr. Aguilar yesterday revealing a large circumferential duodenal bulbar ulcer with a visible vessel but no active bleeding status post Endocam placement and erosive gastritis. Blood pressure 148/79 heart rate 79 afebrile maintaining oxygen saturation on room air. Laboratory data reviewed, WBC 19.6, hemoglobin 7.6, platelets 326, sodium 133, potassium 4.1, creatinine 0.84. Currently maintained on atorvastatin 20 mg daily and losartan 50 mg daily. He has no symptoms of chest discomfort, shortness of breath, dizziness or palpitations. H e states on a regular basis he is quite physically active and denies ever having had symptoms of exertional shortness of breath or chest discomfort. GENERAL: Well-appearing, well-nourished and in no acute distress. NECK: Supple without JVD or thyromegaly. LUNGS: Breath sounds clear to auscultation bilaterally. Respiration equal and unlabored. No wheezes, rales or rhonchi. HEART: Regular rate and rhythm without murmurs, rubs or gallops. S1 and S2 heard. EXTREMITIES: Normal range of motion, no edema. No clubbing or cyanosis. Peripheral pulses intact. ASSESSMENT Acute GI bleeding Anemia Troponin elevation secondary to supply demand mismatch. No evidence for acute coronary syndrome. Hypertension Dyslipidemia PLAN Continue current medical regimen. Stable from a cardiac perspective. Follow-up in the office with Dr. Waggoner upon discharge for further outpatient stress testing is warranted. We will follow along as needed. Nurse Practitioner note has been reviewed, I agree with a documented findings and plan of care. Patient was seen and examined. Objective - Vital Signs Vital signs: Vital Signs Temp 97.8 F 08/04/20 04:00 Pulse 79 08/04/20 08:00 Resp 24 08/04/20 08:00 BP 148/79 08/04/20 09:00 Pulse Ox 94 L 08/04/20 08:00 Intake & Output 08/03/20 08/04/20 08/04/20 18:59 06:59 18:59 Intake Total 2115 1650 360 Output Total 0 0 Balance 5 1650 360 Weight 99.2 kg Intake: IV 1025 750 Sodium Chloride 0.9% 1, 825 750 000 ml @ 75 mls/hr IV . [id number] [facility] Rx#:[id number] Intake, IV Titration 50 Amount cefTRIAXone 1 gm In 50 Sodium Chloride 0.9% 50 ml @ 100 mls/hr IVPB Q24HR [facility]BER Rx#:[id number] Oral 1040 900 360 Output: Urine 0 0 Other: Voiding Method Toilet Toilet Toilet # Voids 1 1 1 - Labs CBC & Chem 7: 08/04/20 04:05 08/04/20 04:05 Labs: Abnormal Lab Results - Last 24 Hours (Table) 08/03/20 08/04/20 08/04/20 Range/Units 18:35 04:05 04:05 WBC 17.0 H 19.6 H (3.8-10.6) k/uL RBC 2.50 L 2.43 L (4.30-5.90) m/uL Hgb 7.7 L 7.6 L (13.0-17.5) gm/dL Hct 23.3 L 22.8 L (39.0-53.0) % RDW 15.6 H (11.5-15.5) % Neutrophils # 12.4 H 13.8 H (1.3-7.7) k/uL Sodium 133 L (137-145) mmol/L Calcium 7.5 L (8.4-10.2) mg/dL ALT 78 H (4-49) U/L Total Protein 4.9 L (6.3-8.2) g/dL Albumin 2.4 L (3.5-5.0) g/dL Microbiology - Last 24 Hours (Table) 08/02/20 17:34 Blood Culture - Preliminary Blood No Growth after 24 hours 08/02/20 21:17 Urine Culture - Preliminary Urine,Clean Catch
--- NOTE | 2020-08-04 13:01 | P.PN ---
Subjective Progress Note Date: 08/04/20 Principal diagnosis: Acute gastrointestinal bleed This a pleasant 65-year-old white male who came in with lightheadedness, dizziness, and multiple episodes of black tarry stools that started a week ago. On presentation to the emergency department he had a hemoglobin of 4.8. He has status post 3 units of PRBC transfusion. He underwent an upper endoscopy yesterday with Dr. Aguilar findings that included a large circumferential duodenal bulbar ulcer with a visible vessel but no active bleeding status post Endo Clip placement and antral erosive gastritis. He was continued on Protonix 40 mg twice daily. He has been on a clear liquid diet and is tolerating well. He denies any nausea, vomiting, or abdominal pain. He has not had a bowel movement since his upper endoscopy. Today's hemoglobin is stable at 7.6. Objective - Vital Signs Vital signs: Vital Signs Temp 97.8 F 08/04/20 04:00 Pulse 79 08/04/20 08:00 Resp 24 08/04/20 08:00 BP 148/79 08/04/20 09:00 Pulse Ox 94 L 08/04/20 08:00 Intake & Output 08/03/20 08/04/20 08/04/20 18:59 06:59 18:59 Intake Total 2115 1650 360 Output Total 0 0 Balance 2115 1650 360 Weight 99.2 kg Intake: IV 1025 750 Sodium Chloride 0.9% 1, 825 750 000 ml @ 75 mls/hr IV . [id number] [facility] Rx#:[id number] Intake, IV Titration 50 Amount cefTRIAXone 1 gm In 50 Sodium Chloride 0.9% 50 ml @ 100 mls/hr IVPB Q24HR [facility] Rx#:[id number] Oral 1040 900 360 Output: Urine 0 0 Other: Voiding Method Toilet Toilet Toilet # Voids 1 1 1 - Exam General appearance: The patient is alert, oriented, in no acute distress. HET: Head is normocephalic and atraumatic. Conjunctiva pink. Sclera and icteric. Neck: Supple without lymphadenopathy. Abdomen: Soft, nontender, nondistended with bowel sounds. No guarding or rigidity. Extremities: Normal skin color and turgor. No pedal edema Neurological: No focal deficits. Alert and oriented 3. - Labs CBC & Chem 7: 08/04/20 04:05 08/04/20 04:05 Labs: Abnormal Lab Results - Last 24 Hours (Table) 08/03/20 08/04/20 08/04/20 Range/Units 18:35 04:05 04:05 WBC 17.0 H 19.6 H (3.8-10.6) k/uL RBC 2.50 L 2.43 L (4.30-5.90) m/uL Hgb 7.7 L 7.6 L (13.0-17.5) gm/dL Hct 23.3 L 22.8 L (39.0-53.0) % RDW 15.6 H (11.5-15.5) % Neutrophils # 12.4 H 13.8 H (1.3-7.7) k/uL Sodium 133 L (137-145) mmol/L Calcium 7.5 L (8.4-10.2) mg/dL ALT 78 H (4-49) U/L Total Protein 4.9 L (6.3-8.2) g/dL Albumin 2.4 L (3.5-5.0) g/dL Microbiology - Last 24 Hours (Table) 08/02/20 17:34 Blood Culture - Preliminary Blood No Growth after 24 hours 08/02/20 21:17 Urine Culture - Preliminary Urine,Clean Catch Assessment and Plan (1) Acute upper GI bleed Narrative/Plan: The patient presented to the emergency department with severe dizziness, fat igue, and black tarry stools for the last 2 days duration. His presenting hemoglobin was 4.8 on admission, his recent hemoglobin 5 days prior was at 13. He received a total of 3 units of PRBC transfusion. Computed tomography scan showed thickening of the gastric antrum and duodenum suspicious for peptic ulcer disease. The patient has been taking some Aleve for recent flulike symptoms about a week ago. He underwent an upper endoscopy yesterday that showed a large duodenal bulbar ulcer with a visible vessel but no active bleeding status post with Endo Clip and antral erosive gastritis. Current Visit: Yes Status: Acute Code(s): K92.2 - GASTROINTESTINAL HEMORRHAGE, UNSPECIFIED SNOMED Code(s): 12496696 (2) Elevated transaminase level Narrative/Plan: Hepatitis serologies for A, B, and C are negative Current Visit: Yes Status: Acute Code(s): R74.01 - SNOMED Code(s): 792885425 Plan: 1. Continue Protonix 40 mg twice a day 2. Advance to full liquid diet 3. Monitor CBC closely and transfuse if hemoglobin is less than 7 4. Patient is status post upper endoscopy 5. We will continue to follow you closely The impression and plan of care has been dictated as directed. I performed a history and examination of this patient, discussed the same with the dictator. I agree with the dictator's note ,documented as a scribe. Any additional findings or plans will be noted.
--- NOTE | 2020-08-04 14:33 | P.PN ---
Subjective Progress Note Date: 08/04/20 65-year-old male patient, admitted to the hospital because of an acute GI bleed. The patient was initially elevated at hospital the patient has been complaining of abdominal pain for the past 5 days and he was treated with antibiotics for an acute diverticulitis. He started having multiple episodes of black tarry stool over the past 2 days and he came in with a hemoglobin of 4.8. He was having lightheadedness along with bloody stool. The patient was seen by gastroenterology. The patient was given a total of 3 units of packed RBC and hemoglobin came up to 7.6. EGD was done and the patient was found to have a large circumferential duodenal bulb ulcer with a visible vessel without evidence of any acute bleeding and the patient was given Endo Clip treatment. There was also evidence of antral erosive gastritis. The patient was placed on Protonix and the patient was moved to the intensive care unit for further care. The patient has hypertension and hyperlipidemia as comorbidities. The patient is receiving IV fluids with normal saline has been cut down to KVO. The patient has no specific complaints. Cardiac rhythm is sinus at this point and the patient is currently on room air oxygen. Objective - Vital Signs Vital signs: Vital Signs Temp 97.8 F 08/04/20 04:00 Pulse 79 08/04/20 08:00 Resp 24 08/04/20 08:00 BP 148/79 08/04/20 10:00 Pulse Ox 94 L 08/04/20 08:00 Intake & Output 08/03/20 08/04/20 08/04/20 18:59 06:59 18:59 Intake Total 2115 1650 720 Output Total 0 0 Balance 2114 1650 720 Weight 99.2 kg Intake: IV 1025 750 Sodium Chloride 0.9% 1, 825 750 000 ml @ 75 mls/hr IV . [id number] [facility] Rx#:[id number] Intake, IV Titration 50 Amount cefTRIAXone 1 gm In 50 Sodium Chloride 0.9% 50 ml @ 100 mls/hr IVPB Q24HR [facility] Rx#:[id number] Oral 1040 900 720 Output: Urine 0 0 Other: Voiding Method Toilet Toilet Toilet # Voids 1 1 1 - Exam The patient appeared well nourished and normally developed. Vital signs as documented. Head exam is unremarkable. No scleral icterus or corneal arcus noted. Neck is without jugular venous distension, thyromegaly, or carotid bruits. Carotid upstrokes are brisk bilaterally. Lungs are clear to auscultation and percussion. Cardiac exam reveals the PMI to be normally sized and situated. Rhythm is regular. First and second heart sounds normal. No murmurs, rubs or gallops. Abdominal exam reveals normal bowel sounds, no masses, no organomegaly and no aortic enlargement. Extremities are nonedematous and both femoral and pedal pulses are normal. Examination of the skin revealed no evidence of significant rashes, suspicious appearing nevi or other concerning lesions.Neurologically, the patient is awake and alert and the patient does not have any focal neurological deficit. Cranial nerves are essentially intact. - Labs CBC & Chem 7: 08/04/20 04:05 08/04/20 04:05 Labs: Abnormal Lab Results - Last 24 Hours (Table) 08/03/20 08/04/20 08/04/20 Range/Units 18:35 04:05 04:05 WBC 17.0 H 19.6 H (3.8-10.6) k/uL RBC 2.50 L 2.43 L (4.30-5.90) m/uL Hgb 7.7 L 7.6 L (13.0-17.5) gm/dL Hct 23.3 L 22.8 L (39.0-53.0) % RDW 15.6 H (11.5-15.5) % Neutrophils # 12.4 H 13.8 H (1.3-7.7) k/uL Sodium 133 L (137-145) mmol/L Calcium 7.5 L (8.4-10.2) mg/dL ALT 78 H (4-49) U/L Total Protein 4.9 L (6.3-8.2) g/dL Albumin 2.4 L (3.5-5.0) g/dL Microbiology - Last 24 Hours (Table) 08/02/20 21:17 Urine Culture - Final Urine,Clean Catch 08/02/20 17:34 Blood Culture - Preliminary Blood No Growth after 24 hours Assessment and Plan Plan: 1 Large circumferential duodenal bulb ulcer with a visible vessel causing upper GI bleed. The patient underwent EGD and Endo Clip placement and this was performed on 08/03/2020. No evidence of any ongoing bleeding at this point in time. Hemoglobin stable at 7.6 2 erosive gastritis 3 blood loss anemia with a hemoglobin of 4.8 and received a total of 3 units of packed RBCs 4 acute diverticulitis, treated in the outpatient basis 5 hypertension 6 hyperlipidemia 7 skin cancer Plan Avoid intake of any form of nonsteroidal anti-inflammatory medications Advance diet as tolerated IV fluids to KVO Hemodynamically stable Tests out of the intensive care unit
--- NOTE | 2020-08-04 21:03 | PN ---
PROGRESS NOTE DATE OF SERVICE: 08/04/2020 This 65-year-old gentleman who was admitted with acute upper GI bleeding with severe acute blood loss anemia is being closely monitored. The patient received 3 units transfusion. Large circumferential duodenal bulb ulcer was noted. The patient also had indeterminate troponin. Cardiology is following the patient closely. After transfusion, hemoglobin is 7.6. Sodium 133. Cardiology and multiple consultants are following the patient closely at this time. Patient is being monitored in the ICU. Past medical history reviewed. REVIEW OF SYSTEMS: CARDIOVASCULAR SYSTEM: As mentioned earlier. RESPIRATORY SYSTEM: As mentioned earlier. GI: As mentioned earlier. : No dysuria or retention. NERVOUS SYSTEM: No numbness, weakness. CURRENT MEDICATIONS: Murray, Lipitor, Dilaudid, Cozaar, melatonin, Narcan, Protonix, Carafate. PHYSICAL EXAMINATION: Patient alert and oriented x3. Pulse is 79, blood pressure 146/121, respiration 24, temperature normal, pulse ox 94% on room air. HEENT: Conjunctivae pale. NECK: No jugular venous distention. CARDIOVASCULAR SYSTEM: S1, S2 muffled. RESPIRATORY SYSTEM: Breath sounds diminished at the bases. Scattered rhonchi. No crackles. ABDOMEN: Soft, non-tender. LEGS: No edema. No swelling. NERVOUS SYSTEM: No focal deficit. LABS: WBC 19.6, hemoglobin 7.6, sodium 133. ASSESSMENT: 1. Acute upper gastrointestinal bleeding with severe acute blood loss anemia, status post 3 units transfusion. 2. Large circumferential duodenal bulbar ulcer with visible vessel, status post Endoclip, as well as antral erosive gastritis on the esophagogastroduodenoscopy. 3. Hyponatremia. 4. Increased white count of undetermined etiology. 5. Increased AST, ALT; possibly acute hepatitis. 6. Mild hypoalbuminemia. 7. Rule out chronic liver disease. 8. Severe symptomatic anemia. 9. Presyncope secondary to severe anemia before admission. 10.Troponin 0.076. Rule out coronary artery disease on outpatient workup per Cardiology. 11.Hypomagnesemia. 12.Increased AST, ALT; possibly mild hepatitis. 13.Hypoalbuminemia with mild protein-calorie malnutrition. 14.Obesity with body mass index of 33.9. 15.Mild aortic stenosis. 16.FULL CODE. RECOMMENDATIONS AND DISCUSSION: I recommend to continue current medications, continue with the monitoring, symptomatic treatment. Repeat labs. Continue the current medications. Continue the Protonix. Continuous Carafate. Closely follow with multiple consultants. Outpatient followup with Cardiology. Guarded prognosis. Further recommendations to follow. MMODL / IJN: [id number] /
[2020-08-04 21:17] LABS: Appearance,Urine Clear (Clear); Bilirubin,Urine Negative (Negative); Blood,Urine Trace (Negative); Color,Urine Yellow; Glucose,Urine (UA) Negative (Negative); Ketones,Urine Negative (Negative); Leukocyte Esterase,Urine Negative (Negative); Mucus,Urine Rare /hpf; Nitrite,Urine Negative (Negative); PH, Urine 5.5 (5.0-8.0); Protein,Urine Negative (Negative); RBC,Urine <1 /hpf (0-5); Specific Gravity,Urine 1.015 (1.001-1.035); Urobilinogen,Urine <2.0 mg/dL (<2.0); WBC,Urine 1 /hpf (0-5)
[2020-08-04] MEDS: MELATONIN 5 MG TABLET PO PRN (21:19)
[2020-08-04] MEDS: HYDROcodone/APAP 5-325MG 1 EACH TAB PO PRN (23:37)
[2020-08-04 23:43] VITALS: BP 113/64
[2020-08-05] MEDS: HYDROmorphone 0.5 MG/0.5 ML SYRINGE IVP PRN (03:03)
[2020-08-05 04:24] LABS: Anisocytosis Slight; HCT 23.2 % (39.0-53.0); HGB 7.7 gm/dL (13.0-17.5); MCH 32.3 pg (25.0-35.0); MCHC 33.1 g/dL (31.0-37.0); MCV 97.5 fL (80.0-100.0); Macrocytosis Slight; Mean Platelet Volume 8.1; Platelet Count 423 k/uL (150-450); RBC 2.38 m/uL (4.30-5.90); RDW 16.6 % (11.5-15.5)
[2020-08-05 04:37] LABS: ALT 65 U/L (4-49); AST 38 U/L (17-59); African American GFR (CKD) >90 (>60 ml/min/1.73 sqM); Albumin 2.7 g/dL (3.5-5.0); Alkaline Phosphatase 57 U/L (38-126); Anion Gap 2 mmol/L; Blood Urea Nitrogen 12 mg/dL (9-20); Calcium 7.9 mg/dL (8.4-10.2); Carbon Dioxide 24 mmol/L (22-30); Chloride 105 mmol/L (98-107); Glucose 94 mg/dL (74-99); Non-African American GFR(CKD) >90 (>60 ml/min/1.73 sqM); Sodium 131 mmol/L (137-145); Total Bilirubin 0.5 mg/dL (0.2-1.3); Total Protein 5.2 g/dL (6.3-8.2)
[2020-08-05 05:39] LABS: Band Neutrophils % 6 %; Lymphocytes # (M) 2.57 k/uL (1.0-4.8); Metamyelocytes % 4 %; Monocytes # (M) 0.91 k/uL (0-1.0); Myelocytes # (M) 0.15 k/uL (0); Myelocytes % 1 %; Neutrophils % (M) 67 %; Nucleated Red Blood Cells 3 /100 WBC (0-0); Polychromasia Present; Total Cells Counted 200; WBC 15.1 k/uL (3.8-10.6)
[2020-08-05] MEDS: SUCRALFATE 1 GM TAB PO SCH ×2 (06:18→14:35)
--- NOTE | 2020-08-05 08:21 | XR ---
EXAMINATION TYPE: XR chest 1V portable DATE OF EXAM: 08/05/2020 COMPARISON: 08/02/2020 INDICATION: Shortness of breath TECHNIQUE: Single frontal view of the chest is obtained. FINDINGS: The heart size is normal. The pulmonary vasculature is normal. The lungs are clear. IMPRESSION: 1. No acute pulmonary process.
[2020-08-05] MEDS ORDERED: FUROSEMIDE 10 MG/ML 4 ML VIAL IV STA (08:52)
--- NOTE | 2020-08-05 09:37 | P.PN ---
Subjective Progress Note Date: 08/05/20 Principal diagnosis: Acute gastrointestinal bleed This a pleasant 65-year-old white male who came in with lightheadedness, dizziness, and multiple episodes of black tarry stools that started a week ago. On presentation to the emergency department he had a hemoglobin of 4.8. He has status post 3 units of PRBC transfusion. He underwent an upper endoscopy yesterday with Dr. Aguilar findings that included a large circumferential duodenal bulbar ulcer with a visible vessel but no active bleeding status post Endo Clip placement and antral erosive gastritis. He was continued on Protonix 40 mg twice daily. He has been on a full liquiddiet and is tolerating well. He denies any nausea, vomiting, or abdominal pain. He reports three small BM's that are dark brown, no melenic stools. Today's hemoglobin is stable at 7.7. Patient states he would like to go home. Objective - Vital Signs Vital signs: Vital Signs Temp 98.1 F 08/04/20 23:40 Pulse 68 08/04/20 23:40 Resp 15 08/04/20 23:40 BP 113/64 08/04/20 23:40 Pulse Ox 100 08/04/20 23:40 Intake & Output 08/04/20 08/05/20 08/05/20 18:59 06:59 18:59 Intake Total 1080 Output Total 0 Balance 1080 Weight 99.5 kg Intake: Oral 1080 Output: Urine 0 Other: Voiding Method Toilet Toilet # Voids 1 1 # Bowel Movements 1 - Exam General appearance: The patient is alert, oriented, in no acute distress. HET: Head is normocephalic and atraumatic. Conjunctiva pink. Sclera and icteric. Neck: Supple without lymphadenopathy. Abdomen: Soft, nontender, nondistended with bowel sounds. No guarding or rigidity. Extremities: Normal skin color and turgor. No pedal edema Neurological: No focal deficits. Alert and oriented 3. - Labs CBC & Chem 7: 08/05/20 03:49 08/05/20 03:49 Labs: Abnormal Lab Results - Last 24 Hours (Table) 08/04/20 08/05/20 08/05/20 Range/Units 20:58 03:49 03:49 WBC 15.1 H (3.8-10.6) k/uL RBC 2.38 L (4.30-5.90) m/uL Hgb 7.7 L (13.0-17.5) gm/dL Hct 23.2 L (39.0-53.0) % RDW 16.6 H (11.5-15.5) % Neutrophils # (Manual) 11.00 H (1.3-7.7) k/uL Metamyelocytes # (Man) 0.60 H (0) k/uL Myelocytes # (Manual) 0.15 H (0) k/uL Nucleated RBCs 3 H (0-0) /100 WBC Sodium 131 L (137-145) mmol/L Calcium 7.9 L (8.4-10.2) mg/dL ALT 65 H (4-49) U/L Total Protein 5.2 L (6.3-8.2) g/dL Albumin 2.7 L (3.5-5.0) g/dL Urine Blood Trace H (Negative) Urine Mucus Rare H (None) /hpf Microbiology - Last 24 Hours (Table) 08/02/20 17:34 Blood Culture - Preliminary Blood No Growth after 48 hours 08/02/20 21:17 Urine Culture - Final Urine,Clean Catch Assessment and Plan (1) Acute upper GI bleed Narrative/Plan: The patient presented to the emergency department with severe dizziness, fatigue, and black tarry stools for the last 2 days duration. His presenting hemoglobin was 4.8 on admission, his recent hemoglobin 5 days prior was at 13. He received a total of 3 units of PRBC transfusion. Computed tomography scan showed thickening of the gastric antrum and duodenum suspicious for peptic ulcer disease. The patient has been taking some Aleve for recent flulike symptoms about a week ago. He underwent an upper endoscopy yesterday that showed a large duodenal bulbar ulcer with a visible vessel but no active bleeding status post with Endo Clip and antral erosive gastritis. Current Visit: Yes Status: Acute Code(s): K92.2 - GASTROINTESTINAL HEMORRHAGE, UNSPECIFIED SNOMED Code(s): 77912128 (2) Elevated transaminase level Narrative/Plan: Hepatitis serologies for A, B, and C are negative Current Visit: Yes Status: Acute Code(s): R74.01 - SNOMED Code(s): 704196700 Plan: 1. Continue Protonix 40 mg twice a day 2. Advance to low fiber diet 3. Monitor CBC closely and transfuse if hemoglobin is less than 7 4. Patient is status post upper endoscopy 5. Patient may be discharged home if tolerates lunch from a gastroenterology standpoint with follow-up in one week for biopsy results and monitoring of CBC. The impression and plan of care has been dictated as directed. I performed a history and examination of this patient, discussed the same with the dictator. I agree with the dictator's note ,documented as a scribe. Any additional findings or plans will be noted.
[2020-08-05] MEDS: PANTOPRAZOLE 40 MG/10 ML VIAL IVP SCH (10:48)
[2020-08-05] MEDS: LOSARTAN 50 MG TAB PO SCH (10:48)
[2020-08-05] MEDS: ATORVASTATIN 20 MG TAB PO SCH (10:48)
--- NOTE | 2020-08-05 12:11 | P.PN ---
Subjective Progress Note Date: 08/05/20 08/05/2020, the patient doing well. No specific complaints. Patient's been taking clear liquid diet throughout the day yesterday. Hemoglobin stable. No evidence of any GI bleeding. He has developed some increased swelling lower extremities bilaterally. Echocardiogram is within normal limits. No signs of the complete heart failure. The patient is on room air oxygen. No nausea. No vomiting. No abdominal pain. No chest pain. No other significant events overnight. Noted the patient's hemoglobin is at 7.7. The white cell count of 15.1. Platelet count of 423. Objective - Vital Signs Vital signs: Vital Signs Temp 98.1 F 08/04/20 23:40 Pulse 68 08/04/20 23:40 Resp 15 08/04/20 23:40 BP 113/64 08/04/20 23:40 Pulse Ox 100 08/04/20 23:40 Intake & Output 08/04/20 08/05/20 08/05/20 18:59 06:59 18:59 Intake Total 1080 Output Total 0 Balance 1080 Weight 99.5 kg Intake: Oral 1080 Output: Urine 0 Other: Voiding Method Toilet Toilet Toilet # Voids 1 1 1 # Bowel Movements 1 - Exam The patient appeared well nourished and normally developed. Vital signs as documented. Head exam is unremarkable. No scleral icterus or corneal arcus noted. Neck is without jugular venous distension, thyromegaly, or carotid bruits. Carotid upstrokes are brisk bilaterally. Lungs are clear to auscultation and percussion. Cardiac exam reveals the PMI to be normally sized and situated. Rhythm is regular. First and second heart sounds normal. No murmurs, rubs or gallops. Abdominal exam reveals normal bowel sounds, no masses, no organomegaly and no aortic enlargement. Extremities are nonedematous and both femoral and pedal pulses are normal. Examination of the skin revealed no evidence of significant rashes, suspicious appearing nevi or other concerning lesions.Neurologically, the patient is awake and alert and the patient does not have any focal neurological deficit. Cranial nerves are essentially intact. - Labs CBC & Chem 7: 08/05/20 03:49 08/05/20 03:49 Labs: Abnormal Lab Results - Last 24 Hours (Table) 08/04/20 08/05/20 08/05/20 Range/Units 20:58 03:49 03:49 WBC 15.1 H (3.8-10.6) k/uL RBC 2.38 L (4.30-5.90) m/uL Hgb 7.7 L (13.0-17.5) gm/dL Hct 23.2 L (39.0-53.0) % RDW 16.6 H (11.5-15.5) % Neutrophils # (Manual) 11.00 H (1.3-7.7) k/uL Metamyelocytes # (Man) 0.60 H (0) k/uL Myelocytes # (Manual) 0.15 H (0) k/uL Nucleated RBCs 3 H (0-0) /100 WBC Sodium 131 L (137-145) mmol/L Calcium 7.9 L (8.4-10.2) mg/dL ALT 65 H (4-49) U/L Total Protein 5.2 L (6.3-8.2) g/dL Albumin 2.7 L (3.5-5.0) g/dL Urine Blood Trace H (Negative) Urine Mucus Rare H (None) /hpf Microbiology - Last 24 Hours (Table) 08/02/20 17:34 Blood Culture - Preliminary Blood No Growth after 48 hours 08/02/20 21:17 Urine Culture - Final Urine,Clean Catch Assessment and Plan Plan: 1 Large circumferential duodenal bulb ulcer with a visible vessel causing upper GI bleed. The patient underwent EGD and Endo Clip placement and this was performed on 08/03/2020. No evidence of any ongoing bleeding at this point in time. Hemoglobin stable at 7.7 2 erosive gastritis 3 blood loss anemia with a hemoglobin of 4.8 and received a total of 3 units of packed RBCs 4 acute diverticulitis, treated in the outpatient basis 5 hypertension 6 hyperlipidemia 7 skin cancer Plan Advance diet to soft Hemoglobin is stable at 7.7 Give the patient 40 mg of IV Lasix regarding his lower extremity edema Transfer this patient out of the intensive care unit
[2020-08-05] MEDS ORDERED: LIDOCAINE 5% PATCH TOPICAL SCH (15:45)
[2020-08-05 16:28] VITALS: PULSE 71; RESP 16; TEMP 98.6
== END 2020-08-05 17:38 | disposition home or self-care (01) | DRG 378 ==
LOC: EC 11:17 → 2SICU 12:51
PROVIDERS: ADMIT Hospitalist; ATTEND Hospitalist
PROC: 30233N1 Transfusion of Nonautologous Red Blood Cells into Peripheral Vein, Percutaneous Approach (ICD-10-PCS; 2020-08-02)
PROC: 0W3P8ZZ Control Bleeding in Gastrointestinal Tract, Via Natural or Artificial Opening Endoscopic (ICD-10-PCS; principal; 2020-08-03 10:00)
PROC: 0DB78ZX Excision of Stomach, Pylorus, Via Natural or Artificial Opening Endoscopic, Diagnostic (ICD-10-PCS; principal; 2020-08-03 10:00)
DX: K26.4 Chronic or unspecified duodenal ulcer with hemorrhage (principal); D62 Acute posthemorrhagic anemia; E44.1 Mild protein-calorie malnutrition; E87.1 Hypo-osmolality and hyponatremia; K29.60 Other gastritis without bleeding; K57.33 Diverticulitis of large intestine without perforation or abscess with bleeding; E66.9 Obesity, unspecified; Z68.33 Body mass index [BMI] 33.0-33.9, adult; E78.5 Hyperlipidemia, unspecified; E83.42 Hypomagnesemia; F17.290 Nicotine dependence, other tobacco product, uncomplicated; I10 Essential (primary) hypertension; R79.89 Other specified abnormal findings of blood chemistry; I35.0 Nonrheumatic aortic (valve) stenosis; Z85.828 Personal history of other malignant neoplasm of skin; Z80.8 Family history of malignant neoplasm of other organs or systems; Z79.899 Other long term (current) drug therapy; R55 Syncope and collapse; R94.5 Abnormal results of liver function studies
CPT/HCPCS: 36415; 43239; 43255; 71045; 74176; 80053; 80074; 81001; 83735; 83880; 84484; 85025; 85027; 85610; 85730; 86850; 86900; 86901; 86920; 87040; 87086; 88305; 93005; 93306; 96360; 99291

== ENCOUNTER → 2020-12-01 | Outpatient (CLI) | payer MEDICARE ==
--- NOTE | 2020-12-01 21:41 | MR ---
EXAMINATION TYPE: MR lumbar spine wo con DATE OF EXAM: 12/01/2020 COMPARISON: Outside lumbar spine x-ray November 20, 2020 HISTORY: Extreme pain and loss of muscle control to legs x4-5 weeks, mostly right side is affected bu t some pain radiating on the left as well TECHNIQUE: Multiplanar, multisequence imaging of the lumbar spine is performed without IV contrast. FINDINGS: Sagittal images of the lumbar spine show vertebral body heights to appear satisfactory. Gra de 1 retrolisthesis L3 on L4 There is multilevel disc desiccation with moderate to advanced disc spac e narrowing L3-L4 and L5-S1 levels. Moderate disc space narrowing L4-L5 level. Moderate multilevel an terior spurring. The conus medullaris is normal in position and signal ending inferior L1 level. Het erogeneous Modic type I endplate changes posterior L5-S1 level. Axial images at T12-L1 level shows mild to moderate broad disc bulge and mild to moderate facet degen erative changes. There is mild effacement of the anterior thecal sac. Patent bilateral neural foramin a. Axial images at L1-L2 level mild to moderate broad disc bulge mildly effacing the anterior thecal sac and mild facet degenerative changes bilaterally. Patent bilateral neural foramina. Axial images at the L2-L3 level show [id number] broad disc bulge effacing the anterior thecal s ac with mild facet degenerative changes bilaterally. There is mild left-sided anterior inferior neura l foraminal narrowing. Axial images at the L3-L4 level show [id number] facet degenerative changes and ligament flavum hypertrophy effacing the posterior lateral thecal sac. There is mild to moderate broad disc bulge. Th ere is mild to moderate left greater than right bilateral neural foraminal narrowing. Axial images at the L4-L5 level show moderate to advanced facet degenerative changes and ligament fla vum hypertrophy effacing the posterior lateral thecal sac. There is moderate to advanced broad disc b ulge. There is moderate right sided neural foraminal narrowing. Axial images at the L5-S1 level show moderate to advanced facet degenerative changes bilaterally. The re is moderate broad disc bulge with right lateral disc protrusion component. There is mild effacemen t of the anterior thecal sac. There is moderate to severe right and mild to moderate left-sided neura l foraminal narrowing. Encroachment on exiting right L5 nerve fell present sagittal image 14 and axia l image 9. Paraspinal muscle bulk is fairly well maintained. There is thin walled 1.3 cm exophytic cyst medially lower pole left kidney axial image 23. IMPRESSION: Multilevel degenerative changes in the lumbar spine as detailed above. Attention to L5-S1 level or encroachment on the extraforaminal right L5 nerve is felt present.
== END | disposition home or self-care (01) ==
LOC: RADMRIMAIN 19:01
PROVIDERS: ATTEND Orthopaedic Surgery
DX: M47.816 Spondylosis without myelopathy or radiculopathy, lumbar region (principal); M47.817 Spondylosis without myelopathy or radiculopathy, lumbosacral region
CPT/HCPCS: 72148

== ENCOUNTER 2020-12-03 10:50 | Day surgery (SDC) | payer MEDICARE ==
[2020-12-03 11:22] VITALS: RESP 18; TEMP 98.6
[2020-12-03] MEDS ORDERED: LACTATED RINGERS 1,000 ML IV ONE (11:32)
[2020-12-03] MEDS ORDERED: LIDOCAINE 1% INJ 10MG/ML (20 ML MDV) ONE (12:30)
[2020-12-03] MEDS ORDERED: PROPOFOL 10 MG/ML 20 ML VIAL IV ONE (12:30)
--- NOTE | 2020-12-03 12:38 | P.PCN ---
Date of Procedure: 12/03/20 Procedure(s) Performed: BRIEF HISTORY: Patient is a 65-year-old, pleasant, white male with history of duodenal ulcer diagnosed in July 2020 when he presented to the hospital with anemia and hemoglobin of 4 g/dL. He has since been on Protonix 40 mg twice daily and doing well. Her last 3 weeks he started experiencing severe epigastric and left upper quadrant abdominal pain and hence he scheduled for an upper endoscopy to evaluate further. PROCEDURE PERFORMED: Esophagogastroduodenoscopy with biopsy PREOPERATIVE DIAGNOSIS: Epigastric and left upper quadrant abdominal pain of 3 weeks' duration. IV sedation per anesthesia. PROCEDURE: After informed consent was obtained, the patient was brought into the endoscopy unit. IV sedation was administered by Anesthesia under continuous monitoring. Initially the Olympus GIF-140 video endoscope was inserted into the mouth. Esophagus intubated without any difficulty. It was gradually advanced into the stomach and duodenum and carefully examined. The bulb and the second part of the duodenum appeared normal. The previously noted duodenal ulcer has completely healed. No evidence of duodenal stricture. The scope at this time was withdrawn to the stomach, adequately insufflated with air, and upon careful examination, mucosa of the antrum had had mild erythema in the prepyloric area that was biopsied., body, cardia and the fundus appeared normal. The scope was then withdrawn into the esophagus. The GE junction was located at 39 cm from the incisors. The esophagus appeared normal. There were no erosions or ulcerations seen, biopsies were done from the distal esophagus and the patient tolerated the procedure well. IMPRESSION: 1. Completely healed duodenal bulbar ulcer. 2. Minimal antral gastritis. RECOMMENDATIONS: The findings of this examination were discussed with the patient as well as his family. He was advised to follow with the biopsy results. He was advised to stop the Protonix and continues to to avoid NSAIDs.
[2020-12-03 13:04] VITALS: BP 164/97; PULSE 70
== END 2020-12-03 13:42 | disposition home or self-care (01) ==
LOC: ORWHC2ENDO 10:50
PROVIDERS: ATTEND Internal Medicine Gastroenterology
DX: K29.50 Unspecified chronic gastritis without bleeding (principal); I10 Essential (primary) hypertension; Z87.11 Personal history of peptic ulcer disease; Z86.2 Personal history of diseases of the blood and blood-forming organs and certain disorders involving the immune mechanism; Z79.891 Long term (current) use of opiate analgesic; Z79.899 Other long term (current) drug therapy
CPT/HCPCS: 43239; 88305; J2001; J2704

== ENCOUNTER → 2020-12-22 | Outpatient (CLI) | payer MEDICARE ==
[2020-12-22 08:19] LABS: ALT 24 U/L (4-49); AST 23 U/L (17-59); African American GFR (CKD) >90 (>60 ml/min/1.73 sqM); Albumin 4.6 g/dL (3.5-5.0); Alkaline Phosphatase 65 U/L (38-126); Anion Gap 10 mmol/L; Anisocytosis Slight; Basophils % (A) 1 %; Blood Urea Nitrogen 15 mg/dL (9-20); C Reactive Protein <5.0 mg/L (<10.0); Calcium 10.2 mg/dL (8.4-10.2); Carbon Dioxide 30 mmol/L (22-30); Chloride 98 mmol/L (98-107); Eosinophils # (A) 0.1 k/uL (0-0.7); Eosinophils % (A) 1 %; Glucose 97 mg/dL (74-99); HCT 44.2 % (39.0-53.0); HGB 14.3 gm/dL (13.0-17.5); Lymphocytes # (A) 1.9 k/uL (1.0-4.8); Lymphocytes % (A) 25 %; MCH 28.7 pg (25.0-35.0); MCHC 32.3 g/dL (31.0-37.0); MCV 88.8 fL (80.0-100.0); Mean Platelet Volume 7.8; Monocytes # (A) 0.5 k/uL (0-1.0); Monocytes % (A) 7 %; Neutrophils % (A) 65 %; Non-African American GFR(CKD) 85 (>60 ml/min/1.73 sqM); Platelet Count 261 k/uL (150-450); Potassium 4.6 mmol/L (3.5-5.1); RBC 4.98 m/uL (4.30-5.90); RDW 17.3 % (11.5-15.5); Sodium 138 mmol/L (137-145); Total Bilirubin 0.5 mg/dL (0.2-1.3); Total Protein 7.3 g/dL (6.3-8.2); WBC 7.7 k/uL (3.8-10.6)
[2020-12-22 10:23] LABS: Erythrocyte Sedimentation Rate 8 mm/hr (0-15)
--- NOTE | 2020-12-22 16:01 | MR ---
MRI CERVICAL SPINE: CLINICAL HISTORY: Neck pain and thoracic spine pain TECHNIQUE: Multiplanar, multisequence imaging of the cervical and thoracic spine is performed without IV contrast. COMPARISON: Cervical spine plain film 12/08/2020 FINDINGS: Sagittal images of the cervical spine show the craniocervical junction to appear within nor mal limits. The cervical and thoracic spinal cord is normal in course, caliber, and signal. Verteb ral alignment is anatomic. The vertebral body and intravertebral disk heights are remarkable for los s of disc height signal at C4-5, C5-6 and C6-7, there is associated spondylosis, endplate discogenic marrow signal change is present at C5-6 and C6-7. Small posterior disc bulge is present at C2-3. No significant spinal stenosis or foraminal encroachme nt C3-4: Posterior central disc herniation causes anterior mass effect on the thecal sac. No significant spinal stenosis or foraminal encroachment. C4-5: Posterior central disc herniation causes anterior mass effect on the thecal sac. Some mild righ t-sided foraminal encroachment present due to uncovertebral joint hypertrophy. C5-6: Posterior broad-based disc bulge, extension of endplate disc complex causes anterior mass effec t on the thecal sac without significant central stenosis. There is foraminal encroachment present on the left due to uncovertebral joint hypertrophy. C6-7: Posterior extension endplate disc complex causes anterior mass effect on the thecal sac. No sig nificant central stenosis. There is bilateral foraminal encroachment. C7-T1: No significant central canal stenosis. No sizable disc herniation. There are some facet arthro kylee changes present. IMPRESSION: Degenerative disc disease as described. Thoracic spine MRI: Suspect an underlying spinal curvature. There is multilevel spondylosis present. Some mild endplate d iscogenic marrow signal changes are present to lower thoracic spine. No significant spinal stenosis. Multilevel posterior extension endplate disc complex causes mild anterior mass effect on the thecal s ac greater in the lower levels, there is multilevel facet arthropathy. No significant foraminal encro achment. IMPRESSION: Degenerative disc disease and facet arthropathy. No sizable posterior disc herniation.
== END | disposition home or self-care (01) ==
LOC: RADMRIMAIN 06:05
PROVIDERS: ATTEND Orthopaedic Surgery
DX: M50.30 Other cervical disc degeneration, unspecified cervical region (principal); M51.34 Other intervertebral disc degeneration, thoracic region; M47.814 Spondylosis without myelopathy or radiculopathy, thoracic region; M54.5 Low back pain
CPT/HCPCS: 36415; 72141; 72146; 80053; 85025; 85652; 86140

== ENCOUNTER 2021-01-20 07:00 | Day surgery (SDC) | payer MEDICARE ==
[2021-01-19 08:18] VITALS: BMI 26.5
[~2021-01-20 07:00] MED LIST changes: -LIDOCAINE 1% 20 ML VIAL (10MG/ML) FOR IV START INTRADERMA PRN
[2021-01-20 07:32] VITALS: RESP 18; TEMP 98.2
[2021-01-20] MEDS ORDERED: LACTATED RINGERS 1,000 ML IV ONE (08:05)
[2021-01-20] MEDS ORDERED: fentaNYL (PF) 50 MCG/ML 2 ML AMP ONE (08:10)
[2021-01-20] MEDS ORDERED: MIDAZOLAM 2 MG/2 ML VIAL ONE (08:10)
[2021-01-20] MEDS ORDERED: IOPAMIDOL M200 10 ML VIAL ONE (08:10)
[2021-01-20] MEDS ORDERED: methylPREDNISolone ACETATE 40 MG/ML 1 ML VIAL ONE (08:10)
--- NOTE | 2021-01-20 08:26 | P.PCN ---
Date of Procedure: 01/20/21 Procedure(s) Performed: PREOPERATIVE DIAGNOSIS: Lumbar radiculopathy . POSTOPERATIVE DIAGNOSIS: Same as preoperative diagnoses. PROCEDURE 1. Transforaminal epidural steroid injection under fluoroscopic guidance at right L4-5 level. (Fluoroscopy images stored on file in the radiology Department ) 2. Lumbar epidurogram . ANESTHESIA: Local with 1% lidocaine 3 ml , moderate sedation with intravenous Versed 1 mg and fentanyle 50 micrograms. EBL: Minimal PROCEDURE INDICATION: The patient with low back pain and radiculopathy symptoms unresponsive to conservative treatment. PROCEDURE DESCRIPTION / TECHNIQUE: The patient was seen and identified in the preoperative area. Risks, benefits, complications, and alternatives were discussed with the patient. The patient agreed to proceed with the procedure and signed the consent. IV was started, and vital signs were stable. Patient was taken to the OR and time out was completed. The patient was placed in the prone position on procedure table and a pillow was placed under the abdomen to reduce lumbar lordosis. The lumbosacral area was prepped and draped in the usual sterile fashion. Critical pause was taken. Vital signs were closely monitored during the procedure. Conscious sedation was used during the procedure to decrease patient s anxiety. Using oblique fluoroscopy, the chin of the ``Robbi dog at Right L4-5 level was identified, and the skin and deeper tissues just below was localized with 1% lidocaine. Subsequently, a 22-gauge 3.5-inch spinal needle was advanced under a tunneled view fluoroscopic guidance just underneath the chin of the ``Robbi dog at the right L4-5 Under lateral fluoroscopy, the needle was then advanced to the posterior border of the interforaminal space. After negative aspiration of CSF and blood and with no paresthesias, 1 mL Isovue 200 contrast dye was injected excellent epidurogram and outlining of the nerve root Subsequently, 3 mL of block solution containing 60 mg Depo-Medrol and 2 mL of 0.9% normal saline PF was injected. Needle was removed . At the end of the procedure, skin was cleansed, and bandages were applied. COMPLICATIONS:none DISPOSITION / PLANS: The patient was placed in a supine position and transferred to the recovery area in a stable condition for observation. There was no evidence of lower extremity motor or sensory deficit after the procedure. Patient was discharged from the recovery room after meeting discharge criteria. Home discharge instructions were given to the patient by the staff. The patient was reexamined prior to discharge.
[2021-01-20] MEDS ORDERED: IV FLUID CONTINUATION 1,000 ML IV ONE ×2 (08:28)
--- NOTE | 2021-01-20 08:36 | FL ---
EXAMINATION TYPE: FL guided pain mgmt statistic DATE OF EXAM: 01/20/2021 CLINICAL HISTORY: Low back pain. TECHNIQUE: Fluoroscopy. COMPARISON: None. FINDINGS: Fluoroscopic guidance was provided during pain relief procedure performed by Dr. Ferrell . A total of 5 seconds of fluoroscopic time was utilized during the procedure and 1 spot images are acquired. Single image acquired shows needle localization at suspected L4 level. IMPRESSION: As Above.
[2021-01-20 08:55] VITALS: BP 142/76; PULSE 67
== END 2021-01-20 09:05 | disposition home or self-care (01) ==
LOC: ORPAIN 07:00
PROVIDERS: ATTEND Specialist
DX: M54.16 Radiculopathy, lumbar region (principal)
CPT/HCPCS: 64483; J2250; J1030; J3010; Q9966

== ENCOUNTER → 2021-02-16 | Outpatient (CLI) | payer MEDICARE ==
[2021-02-16 10:14] VITALS: BP 124/75; PULSE 78; RESP 18; TEMP 97.5
--- NOTE | 2021-02-16 10:33 | P.PN ---
Subjective Progress Note Date: 02/16/21 This is a follow-up visit for this 65 years old male with a chronic history of severe low back pain with radiation to the right lower extremity, he is very close with lumbar radiculopathy and lumbar spondylosis, status post right-sided transforaminal epidural steroid injection at the L4 5 level, patient reported that he get significant improvement of his pain, and his ability to function and movement improve significantly, he denies any motor or sensory deficit he denies any fever or night sweats. Objective - Vital Signs Vital signs: Vital Signs Temp 97.5 F L 02/16/21 10:10 Pulse 78 02/16/21 10:10 Resp 18 02/16/21 10:10 BP 124/75 02/16/21 10:10 Pulse Ox 97 02/16/21 10:10 - Exam Physical Examinations : -Constitutiona : Cooperative , not in acute distress . -HEENT : nech : supple , no Lymphadenopathy , normal thyroid size . : eyes : no ptosis , no icterus, no photophobia . - neurologic : Cranial nerve II to XII intact , no focal neurological deffecit . -psychatric : alert , oriented X 3 , appropriate affect , intact judgment and insight . -Lymphatic : no Lymphadenopathy . - musculoskeltal : Lumber spine moter stegnth lower extremities ,thigh and legs 5/5 Right side , 5/5 Left side MRI of the lumbar spine multilevel lumbar degenerative disc disease multilevel lumbar spondylosis with lumbar facet arthropathy Assessment and Plan Plan: Assessment and plan=1-lumbar radiculopathy. 2-lumbar degenerative disc disease. 3-lumbar spondylosis with lumbar facet arthropathy. The patient had good benefit from a right-sided transforaminal epidural steroid injection, the pain improved and the activity of daily livings and improved after the injection, he could benefit from repeat right-sided transforaminal epidural steroid injection at L4 5. - PQRS measures = - Patient's medications are documented in the chart. -Tobacco use is negative and counseling.Given. -Patient's has not received pneumococcal vaccine. -Advanced care planning discussed, patient not eligible. -Opiate contract not signed. -Pain positive and follow-up visit/procedure is scheduled. -Patient's blood pressure measured [124/75 ] , and documented in the record ,and patient will follow up with the primary care. -Patient's weight was measured and body mass index [ 27.4 ] above the,normal limits and counseling was done. and patient instructed to follow-up with the primary care physician. -Patient was not identified as an unhealthy alcohol user Time with Patient: Less than 30
== END ==
LOC: PNWHC3 09:53
PROVIDERS: ATTEND Specialist
DX: M47.26 Other spondylosis with radiculopathy, lumbar region (principal); M51.16 Intervertebral disc disorders with radiculopathy, lumbar region; F17.200 Nicotine dependence, unspecified, uncomplicated
CPT/HCPCS: 99211

== ENCOUNTER → 2021-03-17 | Day surgery (SDC) | payer MEDICARE ==
[2021-03-16 11:08] VITALS: BMI 26.5
[~2021-03-17] MED LIST changes: +DEXAMETHASONE SOD PHOSPHATE 10 MG/ML 1 ML VIAL ONE; +IOPAMIDOL M200 10 ML VIAL ONE; +LIDOCAINE 1% INJ 10MG/ML (20 ML MDV) ONE
[2021-03-17 06:32] VITALS: TEMP 97.9
--- NOTE | 2021-03-17 07:23 | P.PCN ---
Date of Procedure: 03/17/21 Surgeon: Adrian Monroe Pathology: none sent Condition: stable Disposition: PACU Description of Procedure: PREOPERATIVE DIAGNOSIS: Lumbar radiculopathy POSTOPERATIVE DIAGNOSIS: Lumbar radiculopathy PROCEDURE 1. Transforaminal epidural steroid injection under fluoroscopic guidance at L4-5 Right 2. Lumbar epidurogram. SURGEON: Adrian Monroe MD ANESTHESIA: Local only with 1% lidocaine EBL: Minimal PROCEDURE INDICATION: The patient with low back pain and radiculopathy symptoms unresponsive to conservative treatment. PROCEDURE DESCRIPTION / TECHNIQUE: The patient was seen and identified in the preoperative area. Risks, benefits, complications, and alternatives were discussed with the patient. The patient agreed to proceed with the procedure and signed the consent. IV was started, and vital signs were stable. Patient was taken to the OR and time out was completed. The patient was placed in the prone position on procedure table and a pillow was placed under the abdomen to reduce lumbar lordosis. The lumbosacral area was prepped and draped in the usual sterile fashion. Critical pause was taken. Vital signs were closely monitored during the procedure. Conscious sedation was used during the procedure to decrease patients anxiety. The vertebral body of the lumbar vertebra L4 was squared off by tilting the C-arm cephalad then the C-arm was tilted to the oblique position and the target point was at the 6 o'clock position of the pedicle of then skin and deeper tissues were localized with 1% lidocaine. Subsequently, a 22-gauge 3.5- inch spinal needle was advanced under a tunneled view fluoroscopic guidance just underneath the chin of the Robbi dog at the . Under lateral fluoroscopy, the needle was then advanced to the middle of the upper one third of the foramen between(L4-5 ). After negative aspiration of CSF and blood and with no paresthesias, 1 mL of omnipaque contrast dye was injected excellent epidurogram and outlining of the L nerve root was identified. Subsequently, 2 mL of block solution containing 10 mg of Decadron and 1 mL of Lidocaine 1% PF was injected. Needle was removed and the same . At the end of the procedure, skin was cl eansed, and bandages were applied. COMPLICATIONS: None COMMENTS: DISPOSITION / PLANS: The patient was placed in a supine position and transferred to the recovery area in a stable condition for observation. There was no evidence of lower extremity motor or sensory deficit after the procedure. Patient was discharged from the recovery room after meeting discharge criteria. Home discharge instructions were given to the patient by the staff.
[2021-03-17 07:31] VITALS: RESP 20
--- NOTE | 2021-03-17 07:38 | FL ---
EXAMINATION TYPE: FL guided pain mgmt statistic DATE OF EXAM: 03/17/2021 CLINICAL HISTORY: Low back pain. TECHNIQUE: Fluoroscopy. COMPARISON: None. FINDINGS: Fluoroscopic guidance was provided during pain relief procedure performed by Dr. Monroe . A total of 7 seconds of fluoroscopic time was utilized during the procedure and two spot images are acquired. Images acquired shows needle localization at the level of mid lumbar spine. IMPRESSION: As Above.
[2021-03-17 07:48] VITALS: BP 149/79; PULSE 79
== END ==
LOC: ORPAIN 06:10
PROVIDERS: ATTEND Anesthesiology
DX: M54.16 Radiculopathy, lumbar region (principal); I10 Essential (primary) hypertension
CPT/HCPCS: 64483; J1100; J2001; Q9966

== ENCOUNTER → 2021-04-20 | Outpatient (CLI) | payer MEDICARE ==
[2021-04-20 10:30] VITALS: BP 137/88; PULSE 67; RESP 16; TEMP 98.2
--- NOTE | 2021-04-20 10:33 | P.PN ---
Subjective Progress Note Date: 04/20/21 This is a follow-up visit for this 65 years old male with a chronic history of severe low back pain with radiation to the right lower extremity, he is diagnosed with lumbar radiculopathy ,and lumbar spondylosis, status post right- sided transforaminal epidural steroid injection at the L4 5 level, x2 ,patient reported that he get significant improvement of his pain, and his ability to function and movement improve significantly, he denies any motor or sensory deficit he denies any fever or night sweats, showed poor that he had minimal to no pain ,since the second injection Physical Examinations : -Constitutiona : Cooperative , not in acute distress . -HEENT : nech : supple , no Lymphadenopathy , normal thyroid size . : eyes : no ptosis , no icterus, no photophobia . - neurologic : Cranial nerve II to XII intact , no focal neurological deffecit . -psychatric : alert , oriented X 3 , appropriate affect , intact judgment and insight . -Lymphatic : no Lymphadenopathy . - musculoskeltal : Lumber spine moter stegnth lower extremities ,thigh and legs 5/5 Right side , 5/5 Left side MRI of the lumbar spine multilevel lumbar degenerative disc disease multilevel lumbar spondylosis with lumbar facet arthropathy Assessment and Plan Plan: Assessment and plan=1-lumbar radiculopathy. 2-lumbar degenerative disc disease. 3-lumbar spondylosis with lumbar facet arthropathy. Pain improved after right-sided transforaminal epidural steroid injection. He will follow up in the pain clinic when necessary - PQRS measures = - Patient's medications are documented in the chart. -Tobacco use is negative and counseling.Given. -Patient's has not received pneumococcal vaccine. -Advanced care planning discussed, patient not eligible. -Opiate contract not signed. -Pain positive and follow-up visit/procedure is scheduled. -Patient's blood pressure measured [137/88 ] , and documented in the record ,and patient will follow up with the primary care. -Patient's weight was measured and body mass index [ 27.4 ] above the,normal limits and counseling was done. and patient instructed to follow-up with the primary care physician. -Patient was not identified as an unhealthy alcohol user Objective - Vital Signs Vital signs: Vital Signs Temp 98.2 F 04/20/21 10:27 Pulse 67 06/21/21 10:27 Resp 16 04/20/21 10:27 BP 137/88 04/20/21 10:27 Pulse Ox 98 04/20/21 10:27
== END | disposition home or self-care (01) ==
LOC: PNWHC3 09:52
PROVIDERS: ATTEND Specialist
DX: M51.36 Other intervertebral disc degeneration, lumbar region (principal); M47.26 Other spondylosis with radiculopathy, lumbar region; M46.96 Unspecified inflammatory spondylopathy, lumbar region
CPT/HCPCS: 99211

== ENCOUNTER → 2022-05-10 | Outpatient (CLI) | payer MEDICARE ==
[2022-05-10 08:17] VITALS: BP 185/106; PULSE 68; RESP 18; TEMP 98
--- NOTE | 2022-05-10 08:25 | P.PAINPG ---
PQRS Measure Charge Sheet Comment: A 66 yr old male with a history of severe and chronic low back pain secondary to lumbar degenerative disc diseases and lumbar spondylosis with facet arthropathy presents today for evaluation s/p LBP. Pain relief lasted 9 mo. Pain level is currently at 3/10 in intensity, localized on R lower back with radiation of pain towards R hip, constant, dull pain. Pain is provoked as high as 8/10 but provoked with quick movements. Pain is alleviated with PT (2020) for 3 weeks but stopped due to no pain relief, home guided stretches, use of a massage gun at home, chiropractic treatments montly (when needed), heat, ice, medications (Tylenol OTC), topicals, repositioning and rest. Interventional pain procedures completed include R TFESI L4-L5 x 2 Patient is currently on Tylenol OTC, OTC topicals. Patient denies any side effects of the medication(s), denies excessive drowsiness or sleepiness, denies suicidal ideation and reports that the current pain medication is helping to control the pain and improve activities of daily living. Patient denies any motor or sensory deficits. Patient denies any fever or night sweats, denies any change in the bowel movements or urination. Physical Examination: -Constitutional: Cooperative. Not in acute distress . - Neurologic: Cranial nerve II to XII intact. No focal neurological deficits. - Psychatric: Alert & oriented x 3. Matching mood & appropriate affect. Judgment and insight intact. - Musculoskeletal: Cervical spine: Muscle bulk/ tone/ strength in the bilateral upper extremities normal Vertebral body tenderness to palpation over Spurling test positive Distraction test positive Facet loading test positive Thoracic spine Muscle bulk / tone/ strength in the bilateral paraspinal muscles normal Vertebral body tender to palpation over Facet loading test positive Lumbar spine: Motor bulk/ tone/ strength lower extremities , thigh and legs : 5/5 Deep tendon reflexes : Normal Knee Jerk. Normal Ankle Jerk . Vertebral body tenderness to palpation over L4 Lumbar Facet Loading Test positive Straight Leg Raise: positive at 30 degrees right side/ left side Gaenslen's Test positive Sacral spine : Severe tenderness over the Sacroiliac joint: right side / left side Range of motion: Flexion of the lumbar spine <60 degrees Range of motion: Extension of the lumbar spine <20 degrees Gaenslen's Test positive Tyree's Test positive Jacinto test: positive right side / left side Thigh Thrust Test Sacral Thrust Test Assessment and plan: Chronic low back pain secondary to lumbar degenerative disc disease , lumbar spondylosis with facet arthropathy without myelopathy Recommendation of R TFESI L4-L5. May need a series of injections, up to 3 within a 6 mo period, for optimal pain relief. Risks, benefits of procedure discussed and pt verbalized understanding. Denies anticoagulant use or medical history of diabetes. All patient questions answered MAPS reviewed and it was appropriate. I have spent less than 30 minutes on patient care today. Dr Ferrell was available by phone for the evaluation of this patient. The time was used to review the medical records including relevant urine studies and Prescription history (MAPs), review of the available imaging, evaluation and examination of the patient, coordination of care with the medical staff and if applicable referring physicians, as well as creation of the medical record - Pain Location Right Lower Back Non-Pharmacological Interventions: Chiropractic Treatment, Heat, Home Exercise, Ice, Massage, Physical Therapy, Relaxation Technique, Stretching Pharmacological Interventions: Epidural, PRN Medication, Topical Medication PQRS Narrative: Smoking Status Current some day smoker Hx Alcohol Use (MH) No Home Medications: Ambulatory Orders Losartan Potassium 50 mg PO DAILY 11/02/17 Pantoprazole Sodium [Protonix] 40 mg PO BID #60 tablet. 08/05/20 traMADol HCl [Ultram] 50 mg PO Q6HR PRN 12/03/20 Controlled Substance Measures - Controlled Substance Measures Is patient prescribed a controlled substance at discharge?: No
== END ==
LOC: PNWHC3 07:46
PROVIDERS: ATTEND Specialist
DX: M48.061 Spinal stenosis, lumbar region without neurogenic claudication (principal); M47.26 Other spondylosis with radiculopathy, lumbar region; M51.16 Intervertebral disc disorders with radiculopathy, lumbar region; G89.29 Other chronic pain; F17.200 Nicotine dependence, unspecified, uncomplicated
CPT/HCPCS: 99211

== ENCOUNTER → 2022-07-19 | Outpatient (CLI) | payer MEDICARE ==
[2022-07-19 10:19] VITALS: BP 169/105; PULSE 62; RESP 18; TEMP 98.7
--- NOTE | 2022-07-19 14:49 | P.PAINPG ---
PQRS Measure Charge Sheet Comment: A 67 yr old male with a history of severe and chronic low back pain x 3 yrs secondary to lumbar degenerative disc diseases and lumbar spondylosis with facet arthropathy without myelopathy presents today for YOLANDA L4-5. Pt states he experienced 60% pain relief x 2 wks s/p procedure. Pain level is currently at 2/10 in intensity, constant, localized in lower lumbar spine, sore/ sharp in character w shooting towards the BLEs. Pain is provoked as high as 7/10 by standing. Pain is alleviated with chiropractic treatments monthly, heat, ice, massage therapy semi monthly, heat, ice, use of a hot tub, repositioning and rest. Interventional pain procedures completed include YOLANDA L4-5 x1. Patient is currently on DENIES Patient denies any side effects of the medication(s), denies excessive drowsiness or sleepiness, denies suicidal ideation and reports that the current pain medication is helping to control the pain and improve activities of daily living. Patient denies any motor or sensory deficits. Patient denies any fever or night sweats, denies any change in the bowel movements or urination. Physical Examination: -Constitutional: Cooperative. Not in acute distress . - Neurologic: Cranial nerve II to XII intact. No focal neurological deficits. - Psychatric: Alert & oriented x 3. Matching mood & appropriate affect. Judgment and insight intact. - Musculoskeletal: Cervical spine: Muscle bulk/ tone/ strength in the bilateral upper extremities normal Vertebral body tenderness to palpation over Spurling test positive Distraction test positive Facet loading test positive Thoracic spine Muscle bulk / tone/ strength in the bilateral paraspinal muscles normal Vertebral body tender to palpation over Facet loading test positive Lumbar spine: Motor bulk/ tone/ strength lower extremities , thigh and legs : 5/5 Deep tendon reflexes : Normal Knee Jerk. Normal Ankle Jerk . Vertebral body tenderness to palpation over L4 Lumbar Facet Loading Test positive Straight Leg Raise: positive at 30 degrees right side/ left side Gaenslen's Test positive Sacral spine : Severe tenderness over the Sacroiliac joint: right side / left side Range of motion: Flexion of the lumbar spine <60 degrees Range of motion: Extension of the lumbar spine <20 degrees Gaenslen's Test positive Tyree's Test positive Jacinto test: positive right side / left side Thigh Thrust Test Sacral Thrust Test Assessment and plan: Chronic low back pain secondary to lumbar degenerative disc disease , lumbar spondylosis with facet arthropathy without myelopathy Recommendation of YOLANDA L4-5 #2. May need a series of injections, up to 3 within a 6 mo period, for optimal pain relief. Risks, benefits of procedure dis cussed and pt verbalized understanding. Denies anticoagulant use or medical history of diabetes. All patient questions answered MAPS reviewed and it was appropriate. I have spent less than 30 minutes on patient care today. Dr Ferrell was available by phone for the evaluation of this patient. The time was used to review the medical records including relevant urine studies and Prescription history (MAPs), review of the available imaging, evaluation and examination of the patient, coordination of care with the medical staff and if applicable referring physicians, as well as creation of the medical record PQRS Narrative: Smoking Status Current some day smoker Hx Alcohol Use (MH) No Home Medications: Ambulatory Orders Losartan Potassium 50 mg PO DAILY 11/02/17 Controlled Substance Measures - Controlled Substance Measures Is patient prescribed a controlled substance at discharge?: No
== END ==
LOC: PNWHC3 07:50
PROVIDERS: ATTEND Specialist
DX: M51.36 Other intervertebral disc degeneration, lumbar region (principal); M47.816 Spondylosis without myelopathy or radiculopathy, lumbar region; G89.29 Other chronic pain; F17.200 Nicotine dependence, unspecified, uncomplicated; Z88.7 Allergy status to serum and vaccine
CPT/HCPCS: 99211

== ENCOUNTER 2023-01-11 06:14 | Day surgery (SDC) | payer MEDICARE ==
[2023-01-05 15:59] VITALS: BMI 30.1
[~2023-01-11 06:14] MED LIST changes: -DEXAMETHASONE SOD PHOSPHATE 10 MG/ML 1 ML VIAL ONE; -IOPAMIDOL M200 10 ML VIAL ONE; +LIDOCAINE 1% (10MG/ML) FOR IV START INTRADERMA PRN; -LIDOCAINE 1% INJ 10MG/ML (20 ML MDV) ONE
[2023-01-11 06:43] VITALS: TEMP 97.7
[2023-01-11] MEDS ORDERED: IOPAMIDOL M200 10 ML VIAL ONE (07:20)
[2023-01-11] MEDS ORDERED: methylPREDNISolone ACETATE 80 MG/ML 1 ML VIAL ONE (07:20)
--- NOTE | 2023-01-11 07:31 | P.PCN ---
Date of Procedure: 01/11/23 Procedure(s) Performed: PREOPERATIVE DIAGNOSIS: 1- Lumbar Degenerative Disc Diseases 2-Lumbar spondylosis with Facet arthropathy without myelopathy. 3-Lumbar radiculopathy. POSTOPERATIVE DIAGNOSIS: Same as preop diagnosis. PROCEDURE 1. Lumbar epidural steroid injection under fluoroscopic guidance at the L5-S1 level. (Fluoroscopy imaging was available in radiology department) 2. Lumbar epidurogram. ANESTHESIA: local anesthesia with lidocaine 1 % 3 ml only. EBL: Minimal PROCEDURE INDICATION: The patient with low back pain and radiculitis symptoms unresponsive to conservative treatment. Fluoroscopy was used to optimize visualization of the needle placement and to maximize safety. PROCEDURE DESCRIPTION / TECHNIQUE: The patient was seen and identified in the preoperative area. Risks, benefits, complications including but not limited to infections ,bleeding ,allergic reaction to the medications ,nerve damage and not complete pain releife , and alternatives were discussed with the patient. The patient agreed to proceed with the procedure and signed the consent. IV was started, and vital signs were stable. Patient was taken to the OR and time out was completed. The patient was placed in the prone position on procedure table and a pillow was placed under the abdomen to reduce lumbar lordosis. The lumbosacral area was prepped and draped in the usual sterile fashion.ere closely monitored during the procedure. Vital signs was monitered during the entire procedure. Using anterior-posterior fluoroscopy, the L5-S1 interlaminar space was identified and the skin over this site was marked and then infiltrated with 1% lidocaine subcutaneously. Subsequently, a 20-gauge Tuohy epidural needle was inserted and advanced toward the epidural space using the ``Loss of resistance technique and guided by AP and lateral fluoroscopy. The correct needle position in the epidural space was verified with the injection of 2 mL of the water soluble contrast dye Isovue 200 contrast and observing an excellent epidurogram with the epidural spread of the dye, after negative aspiration for blood and CSF and in the absence of paresthesias. Again after negative aspiration, a 6 ml mixture containing 80 mg of Depo-medrol , and 2 ml of preservative free Normal Saline, and 2 ml of preservative free lidocaine 1% solution was injected and a washout of epidurogram was seen. Needle was withdrawn intact, skin was cleansed, and bandages were applied. COMPLICATIONS: None DISPOSITION / PLANS: The patient was placed in a supine position and transferred to the recovery area in a stable condition for observation. There was no evidence of lower extremity motor or sensory deficit after the procedure. Patient was discharged from the recovery room after meeting discharge criteria. Home discharge instructions were given to the patient by the staff. The patient was reexamined prior to discharge. The patient will schedule a follow up in the clinic in 2-4 weeks.
--- NOTE | 2023-01-11 07:40 | FL ---
Intraoperative/procedural fluoroscopic services were provided for lumbar epidural steroid injection. Total fluoroscopy time is 1 second with a total of 1 submitted image to PACS. Please see the operativ e note for further details.
[2023-01-11 07:54] VITALS: BP 158/85; PULSE 71; RESP 20
== END 2023-01-11 08:03 ==
LOC: ORPAIN 06:14
PROVIDERS: ATTEND Specialist
DX: M51.16 Intervertebral disc disorders with radiculopathy, lumbar region (principal); M47.26 Other spondylosis with radiculopathy, lumbar region; Z88.7 Allergy status to serum and vaccine
CPT/HCPCS: 62323; J1040; Q9966

== ENCOUNTER → 2023-01-31 | Outpatient (CLI) | payer MEDICARE ==
--- NOTE | 2023-01-31 09:14 | P.PN ---
Subjective Progress Note Date: 01/31/23 This is a follow-up visit for this 67 years old male, with a chronic history of severe low back pain with radiation to the right lower extremity, he is diagnosed with lumbar radiculopathy ,and lumbar spondylosis, recentely we have done lumbar epidural steroid injection ,patient reported that he get significant improvement of his pain, and his ability to function and movement improve significantly, he denies any motor or sensory deficit he denies any fever or night sweats, showed poor that he had minimal to no pain ,since the second injection Physical Examinations : -Constitutiona : Cooperative , not in acute distress . -HEENT : nech : supple , no Lymphadenopathy , normal thyroid size . : eyes : no ptosis , no icterus, no photophobia . - neurologic : Cranial nerve II to XII intact , no focal neurological deffecit . -psychatric : alert , oriented X 3 , appropriate affect , intact judgment and insight . -Lymphatic : no Lymphadenopathy . - musculoskeltal : Lumber spine moter stegnth lower extremities ,thigh and legs 5/5 Right side , 5/5 Left side MRI of the lumbar spine multilevel lumbar degenerative disc disease multilevel lumbar spondylosis with lumbar facet arthropathy Assessment and Plan Plan: Assessment and plan=1-lumbar radiculopathy. 2-lumbar degenerative disc disease. 3-lumbar spondylosis with lumbar facet arthropathy. Pain improved after Lumbar epidural steroid injection. He will follow up in the pain clinic when necessary, she'll could benefit from Celebrex 200 mg by mouth nightly when necessary (Had history of stomach ulcer ) - PQRS measures = - Patient's medications are documented in the chart. -Tobacco use is negative and counseling.Given. -Patient's has not received pneumococcal vaccine. -Advanced care planning discussed, patient not eligible. -Opiate contract not signed. -Pain positive and follow-up visit/procedure is scheduled. -Patient's blood pressure measured [ ] , and documented in the record ,and patient will follow up with the primary care. -Patient's weight was measured and body mass index [ 27.4 ] above the,normal limits and counseling was done. and patient instructed to follow-up with the primary care physician. -Patient was not identified as an unhealthy alcohol us Objective - Vital Signs Vital signs: Intake & Output 01/30/23 01/31/23 01/31/23 18:59 06:59 18:59 Weight 97.522 kg
[2023-01-31 09:38] VITALS: BP 174/94; PULSE 62; RESP 18; TEMP 98.4
== END ==
LOC: PNWHC3 08:26
PROVIDERS: ATTEND Specialist
DX: M51.16 Intervertebral disc disorders with radiculopathy, lumbar region (principal); M47.26 Other spondylosis with radiculopathy, lumbar region; F17.200 Nicotine dependence, unspecified, uncomplicated; Z88.7 Allergy status to serum and vaccine
CPT/HCPCS: 99211

== ENCOUNTER → 2025-03-18 | Outpatient (CLI) | payer MEDICARE ==
[2025-03-18 07:51] VITALS: BP 200/120; PULSE 69; RESP 17; TEMP 98.2
--- NOTE | 2025-03-20 10:49 | P.PAINPG ---
Objective - Vital Signs Vital signs: Intake & Output 03/17/25 03/18/25 03/18/25 18:59 06:59 18:59 Weight 97.522 kg PQRS Measure Charge Sheet Comment: A 69 yr old male with a history of severe and chronic LBP > 3 yrs secondary to radiculopathy, spondylosis with facet arthropathy without myelopathy presents today for evaluation. Pain level is provoked at 3-6 /10 in intensity, intermittent, predominantly axial, localized in the lumbar spine, achy/ sharp in character w occasional shooting towards the hips. Pain is provoked by walking/ standing for periods > 30 min. Pain is alleviated with chiropractic treatments semi- monthly since 1999 till present (last visit was last week), physician guided home exercises daily since 2022, heat, medications, repositioning and rest. Pt is physically fit for stated age. Oswestry axial pain score at 26. Interventional pain procedures completed include YOLANDA L5-S1 x1 (2022) Patient is currently on Tyl, Ibu Patient denies any side effects of the medication(s), denies excessive drowsiness or sleepiness, denies suicidal ideation and reports that the current pain medication is helping to control the pain and improve activities of daily living. Patient denies any motor or sensory deficits. Patient denies any fever or night sweats, denies any change in the bowel movements or urination. Physical Examination: -Constitutional: Cooperative. Not in acute distress . - Neurologic: Cranial nerve II to XII intact. No focal neurological deficits. - Psychatric: Alert & oriented x 3. Matching mood & appropriate affect. Judgment and insight intact. - Musculoskeletal: Cervical spine: Muscle bulk/ tone/ strength in the bilateral upper extremities normal Vertebral body tenderness to palpation over Spurling test positive Distraction test positive Facet loading test positive TTP Thoracic spine Muscle bulk / tone/ strength in the bilateral paraspinal muscles normal Vertebral body tender to palpation over Facet loading test positive TTP Lumbar spine: Motor bulk/ tone/ strength lower extremities , thigh and legs : 5/5 Deep tendon reflexes : Normal Knee Jerk. Normal Ankle Jerk . Vertebral body tenderness to palpation over Bailey Test positive Lumbar Facet Loading Test positive Straight Leg Raise: positive at 30 degrees right side/ left side Gaenslen's Test positive Sacral spine : Severe tenderness over the Sacroiliac joint: right side / left side Range of motion: Flexion of the lumbar spine <60 degrees Range of motion: Extension of the lumbar spine <20 degrees Gaenslen's Test positive right side / left side Jacinto test: positive right side / left side Thigh Thrust Test positive right side / left side Sacral Thrust Test positive right side / left side Assessment and plan: Chronic LBP secondary to radiculopathy, spondylosis with facet arthropathy without myelopathy Recommendation of lumbar x ray M54.16. All questions answered. I have spent less than 30 minutes on patient care today. Dr Ferrell was available by phone for the evaluation of this patient. The time was used to review the medical records including relevant urine studies and Prescription history (MAPs), review of the available imaging, evaluation and examination of the patient, coordination of care with the medical staff and if applicable referring physicians, as well as creation of the medical record - Pain Location Lower Back Non-Pharmacological Interventions: Heat, Ice PQRS Narrative: Smoking Status Current some day smoker Hx Alcohol Use (MH) No Home Medications: Ambulatory Orders Losartan Potassium 50 mg PO DAILY 11/02/17 Celecoxib [Celebrex] 400 mg PO Q24H 30 Days #30 cap 02/16/23 Controlled Substance Measures - Controlled Substance Measures Is patient prescribed a controlled substance at discharge?: No
== END ==
LOC: PNWHC3 07:37
PROVIDERS: ATTEND Specialist
DX: M47.26 Other spondylosis with radiculopathy, lumbar region (principal); F17.200 Nicotine dependence, unspecified, uncomplicated; Z88.7 Allergy status to serum and vaccine
CPT/HCPCS: 99212

== ENCOUNTER → 2025-03-18 | Outpatient (CLI) | payer MEDICARE ==
--- NOTE | 2025-03-18 08:43 | XR ---
EXAMINATION TYPE: XR lumbar spine 2 or 3V DATE OF EXAM: 03/18/2025 CLINICAL INDICATION: Male, 69 years old with history of M54.16 RADICULOPATHY, LUMBAR REGION, pain TECHNIQUE: Frontal and lateral images of the lumbar spine are obtained. COMPARISON: None FINDINGS: There are 5 lumbar type vertebral bodies identified. The lumbar spine shows satisfactory alignment without evidence of acute fracture or dislocation. Vertebral body heights are within normal limits. Moderate to severe disc space narrowing and anterior spurring L3-L4 level is seen. Moderate disc space narrowing with vacuum disc phenomenon at L5-S1 level. Overlying arterial vascular calcific ation of the abdominal aorta is noted. IMPRESSION: As above. [facility], , 03/18/2025 8:40 AM
== END | disposition home or self-care (01) ==
LOC: RADXRMAIN 08:20
PROVIDERS: ATTEND Specialist
DX: M51.16 Intervertebral disc disorders with radiculopathy, lumbar region (principal)
CPT/HCPCS: 72100